=== PATIENT | male | born 1935 | race African-American/Black ===

== ENCOUNTER 2020-07-02 11:39 | Inpatient (IN) | payer OTHER ==
--- NOTE | 2020-07-02 11:46 | BHS.RME ---
Substance Use & Tx History - Substance Use History Heroin Substance amount: 4-5 bags Frequency of use: Daily Substance route: Injection (ex: intravenous or skin popping) Date of Last Use: 07/02/20 Nicotine Substance amount: 5 ciggs Frequency of use: Daily Substance route: Smoking Date of Last Use: 07/02/20 (started age 20) Marijuana/Hashish Substance amount: 3-4 blunts Frequency of use: Daily Substance route: Smoking Date of Last Use: 07/01/20 (started age 22) Cocaine- Powder Substance amount: 2 bags Frequency of use: Less than 3 times per week Substance route: Inhalation (ex: sniffing or snorting), Injection (ex: intravenous or skin popping) Date of Last Use: 06/30/20 (started age 62) Physical/Psych/Mental Status - Behavior General Behavior: Increased activity (restlessness, agitation) Eye Contact: Normal - Cooperativeness Cooperativeness: Cooperative - Thinking Thought Processes: Tight, Logical, Goal Directed - Physical Health Problems Is patient presently having any pain?: No Does patient presently have any injuries (include location): No Does patient currently have a fever: No Is patient : No COWS - Scale Resting Pulse: 0= [place] 80 or Below Sweatin= Chills/Flushing Restless Observation: 1= Difficult to Sit Still Pupil Size: 1= Pupils >than Normal Bone or Joint Aches: 1= Mild Discomfort Runny Nose/ Eye Tearin= Nasal Congestion GI Upset > 30mins: 1= Stomach Cramp Tremor Observation: 1= Tremor [place], Not Seen Yawning Observation: 1= 1-2x During Session Anxiety or Irritability: 1=Feels Anxious/Irritable Goose Flesh Skin: 0=Smooth Skin (used early this morning not yet in full withdrawal.) COWS Score: 9
--- NOTE | 2020-07-02 12:33 | HP ---
COWS - Scale Resting Pulse: 0= [place] 80 or Below Sweatin= Chills/Flushing Restless Observation: 1= Difficult to Sit Still Pupil Size: 1= Pupils >than Normal Bone or Joint Aches: 1= Mild Discomfort Runny Nose/ Eye Tearin= Nasal Congestion GI Upset > 30mins: 1= Stomach Cramp Tremor Observation: 1= Tremor [place], Not Seen Yawning Observation: 1= 1-2x During Session Anxiety or Irritability: 1=Feels Anxious/Irritable Goose Flesh Skin: 0=Smooth Skin (used early this morning not yet in full withdrawal.) COWS Score: 9 CIWA Score - Admission Criteria OASAS Guidelines: Admission for Medically Managed Detox: Requires at least one of the followin. CIWA greater than 12 2. Seizures within the past 24 hours 3. Delirium tremens within the past 24 hours 4. Hallucinations within the past 24 hours 5. Acute intervention needed for co occurring medical disorder 6. Acute intervention needed for co occurring psychiatric disorder 7. Severe withdrawal that cannot be handled at a lower level of care (continued vomiting, continued diarrhea, abnormal vital signs) requiring intravenous medication and/or fluids 8. Admitting History and Physical - Admission Chief Complaint: Mr. Wolfe is an 84 yo man who presents to [facility] [place] requesting detox admission for heroin use. History of Present Illness: Mr. Wolfe is an 84 yo man who presents to [facility] [place] requesting detox admission for heroin use. This is his first visit to [facility] [place]. PMH: CAD, NM, HTN, hx of positive PPD tx with INH and B6. Saw physician 2 weeks ago at [facility]: told he needs a pacemaker PSH/Psych/Legal: none SOC: lives in [place] in his own apt. alone Substance Use History Heroin Substance amount: 4-5 bags Frequency of use: Daily Substance route: Injection (ex: intravenous or skin popping) Date of Last Use: 07/02/20 First use ag 31 y Yes OD, x 2, last was 3 days ago Has Narcan at home Nicotine Substance amount: 5 ciggs Frequency of use: Daily Substance route: Smoking Date of Last Use: 07/02/20 (started age 20) Marijuana/Hashish Substance amount: 3-4 blunts Frequency of use: Daily Substance route: Smoking Date of Last Use: 07/01/20 (started age 22) Cocaine- Powder Substance amount: 2 bags Frequency of use: Less than 3 times per week Substance route: Inhalation (ex: sniffing or snorting), Injection (ex: intravenous or skin popping) Date of Last Use: 06/30/20 (started age 62) Methadone: 2 mos ago: [facility] [place], was on 30 mg. Admits to buying on the street History Source: Patient Limitations to Obtaining History: No Limitations - Past Medical History Cardiovascular: Yes: Other (multiple spells of loss of consciousness, told he needs a pacemaker, refused) Admission ROS BHS - HPI Exam Limitations: No Limitations - Ebola screening Have you traveled outside of the country in the last 21 days: No Have you been sick,other than usual withdrawal symptoms: No Do you have a fever: No - Review of Systems Constitutional: Unintentional Wgt. Loss (lost 20 lbs in the past several months) EENT: reports: Nose Congestion Respiratory: reports: No Symptoms reported Cardiac: reports: No Symptoms Reported, Other (hx of bradycardia and implanted device: unclear if it is a loop monitor) GI: reports: Nausea : reports: No Symptoms Reported Musculoskeletal: reports: Back Pain (nonradiating), Neck Pain (nonradiating), Other (fell 2 weeks ago, intoxicated, while trying to reach under his bed, struck left posterior shoulder, loss of consciousness for 20-30 mins) Integumentary: reports: Rash (bilateral right greater than left upper back, pruritic. Went to , given a cream, improving. Was weaping fluid in past) Neuro: reports: No Symptoms reported Endocrine: reports: No Symptoms Reported Hematology: reports: No Symptoms Reported Psychiatric: reports: Anxious Patient History - Smoking Cessation Smoking history: Current every day smoker Have you smoked in the past 12 months: Yes Aproximately how many cigarettes per day: 5 Hx Chewing Tobacco Use: No Initiated information on smoking cessation: Yes 'Breaking Loose' booklet given: 07/02/20 Admission Physical Exam S - Vital Signs Vital Signs: Vitals: 157/78 HR 67 RR 20 Temp 97.7 - Physical General Appearance: Yes: No Apparent Distress, Nourished, Thin, Anxious HEENTM: Yes: EOMI, Hearing grossly Normal, Normocephalic, Normal Voice Respiratory: Yes: Lungs Clear, No Respiratory Distress, No Accessory Muscle Use Neck: Yes: Within Normal Limits, Supple Breast: Yes: Breast Exam Deferred Cardiology: Yes: Regular Rhythm, Regular Rate, Other (implanted device palpable left upper chest, ~1.5 inch, slender, linear, pt states it was put in 10 years ago post an episode where he "fell out") Abdominal: Yes: Normal Bowel Sounds, Non Tender, Flat, Soft Genitourinary: Yes: Other (deferred) Back: Yes: Normal Inspection Musculoskeletal: Yes: Gait Steady, Other (fell 2 weeks ago, intoxicated, while trying to reach under his bed, struck left posterior shoulder, loss of consciousness for 20-30 mins) Extremities: Yes: Normal Inspection, Non-Tender Neurological: Yes: Alert, Normal Response Integumentary: Yes: Rash (upper back with multiple circular skin lesions, right greater than left, some with centers scratched off), Track [place] (multiple in legs and arms, mild erythema right medial leg, no swelling, no warmth) Cleared for Admission [facility] - Detox or Rehab [facility] Level of Care: Medically Managed Detox Regimen/Protocol: Methadone Breathalyzer - Breathalyzer Breathalyzer: 0 Urine Drug Screen - Test Device Lot number: [id number] - Control Is test valid?: Yes - Results Drug screen NEGATIVE: No Urine drug screen results: THC-Marijuana, RICARDA-Cocaine, FEN-Fentanyl, MOP- Opiates, MTD-Methadone Inpatient Rehab Admission - Rehab Decision to Admit Inpatient rehab admission?: No
[2020-07-02 12:54] VITALS: BMI 18.2
[2020-07-02] MEDS ORDERED: MAGNESIUM HYDROX 2400MG/30ML ORAL SUSPENSION 30 ML CUP PO PRN (13:11)
[2020-07-02] MEDS ORDERED: MAGNESIUM CITRATE 300 ML BOTTLE PO PRN (13:11)
[2020-07-02] MEDS ORDERED: BISMUTH SUBSALICYLATE 524 MG/30 ML UD PO PRN (13:11)
[2020-07-02] MEDS ORDERED: ACETAMINOPHEN 325 MG TABLET (FP) PO PRN ×2 (13:11)
[2020-07-02] MEDS ORDERED: MAG HYDROX/AL HYDROX/SIMETH 30 ML UNIT-DOSE CUP PO PRN (13:11)
[2020-07-02] MEDS ORDERED: ONDANSETRON *ODT* 4 MG TABLET SL PRN (13:11)
[2020-07-02] MEDS ORDERED: cloNIDine HCL 0.1 MG TABLET PO PRN (13:11)
[2020-07-02] MEDS ORDERED: MENTHOL/PHENOL 1 EACH UD MM PRN (13:11)
[2020-07-02] MEDS ORDERED: NICOTINE POLACRILEX 2 MG GUM BUC PRN (13:11)
[2020-07-02] MEDS ORDERED: METHOCARBAMOL 500 MG TABLET PO PRN (13:11)
[2020-07-02] MEDS ORDERED: IBUPROFEN 400 MG TABLET (FP) PO PRN (13:11)
--- OUTSIDE RECORDS SUMMARY | 2020-07-02 13:28 | XMS ---
:1935 Author Organization [facility] Support Name Relationship Address Phone RE Unavailable Unavailable Unavailable JACOB STALEY [facility] [place], [place] Re-disclosure Warning The records that you are about to access may contain information from federally- assisted alcohol or drug abuse programs. If such information is present, then the following federally mandated warning applies: This information has been disclosed to you from records protected by federal confidentiality rules (42 CFR part 2). The federal rules prohibit you from making any further disclosure of this information unless further disclosure is expressly permitted by the written consent of the person to whom it pertains or as otherwise permitted by 42 CFR part 2. A general authorization for the release of medical or other information is NOT sufficient for this purpose. The Federal rules restrict any use of the information to criminally investigate or prosecute any alcohol or drug abuse patient.The records that you are about to access may contain highly sensitive health information, the redisclosure of which is protected by Article 27-F of the [facility] Public Health law. If you continue you may haveaccess to information: Regarding HIV / AIDS; Provided by facilities licensed or operated by the [facility] Office of Mental Health; or Provided by the [facility] Office for People With Developmental Disabilities. If such information is present, then the following [facility] mandated warning applies: This information has been disclosed to you from confidential records which are protected by state law. State law prohibits you from making any further disclosure of this information without the specific written consent of the person to whom it pertains, or as otherwise permitted by law. Any unauthorized further disclosure in violation of state law may result in a fine or fdc sentence or both. A general authorization for the release of medical or other information is NOT sufficient authorization for further disclosure. Insurance Providers Payer name Policy type Policy ID Covered Covered democrat's Policy P yolanda / Coverage democrat ID relationship to [employer] Inf ormation type benitez MEDICAID [id number] BEACON [place] [id number] SP [id number] 5 PLUS MEDICARE
[2020-07-02] MEDS ORDERED: METHADONE HCL 10 MG TABLET (FOR DETOX USE ONLY) PO ONE (13:45)
[2020-07-02] MEDS ORDERED: LISINOPRIL 10 MG TABLET PO SCH (14:30)
[2020-07-02] MEDS: hydrOXYzine PAMOATE 25 MG CAPSULE (FP) PO SCH ×3 (14:48→23:44)
[2020-07-02] MEDS: METOPROLOL TARTRATE 25 MG TABLET (FP) PO SCH (14:48)
[2020-07-02 17:34] LABS: ALBUMIN 3.7 g/dl (3.4-5.0); BILIRUBIN,TOTAL 0.7 mg/dL (0.2-1); BLOOD UREA NITROGEN 35.2 mg/dL (7-18); CALCIUM 9.1 mg/dL (8.5-10.1); CREATININE 1.5 mg/dL (0.55-1.3); POTASSIUM 4.1 mmol/L (3.5-5.1); TOT PROT 8.6 g/dl (6.4-8.2)
[2020-07-02 17:44] LABS: HEMATOCRIT 30.3 % (35.4-49); HEMOGLOBIN 10.3 GM/dL (11.7-16.9); MCH 35.6 pg (25.7-33.7); MCHC 33.9 g/dl (32.0-35.9); MEAN CELL VOLUME 105.1 fl (80-96); MEAN PLT VOLUME 9.6 fl (7.5-11.1); PLATELET COUNT 164 K/MM3 (134-434); RBC 2.88 M/mm3 (4.00-5.60); RDW 12.9 % (11.9-15.9); WHITE BLOOD COUNT 4.7 K/mm3 (4.0-10.0)
[2020-07-02] MEDS: TRIAMCINOLONE ACET 0.1% OINT 15 GM TUBE TP SCH (23:20)
[2020-07-02] MEDS: FUROSEMIDE 20 MG TABLET (FP) PO SCH (23:22)
[2020-07-02] MEDS: THIAMINE HCL 100 MG TABLET (FP) PO SCH (23:22)
[2020-07-02] MEDS: ATORVASTATIN CA 80 MG TABLET (FP) PO SCH (23:22)
[2020-07-02] MEDS: SACUBITRIL/VALSARTAN 24 MG-26 MG TABLET PO SCH (23:22)
[2020-07-02] MEDS: MELATONIN 5 MG TABLETS PO SCH (23:43)
[2020-07-03] MEDS: hydrOXYzine PAMOATE 25 MG CAPSULE (FP) PO SCH ×5 (05:26→23:07)
[2020-07-03] MEDS ORDERED: METHADONE HCL 5 MG TABLET (FOR DETOX USE ONLY) ONE (09:02)
[2020-07-03] MEDS ORDERED: METHADONE HCL 10 MG TABLET (FOR DETOX USE ONLY) ONE (09:02)
--- NOTE | 2020-07-03 09:28 | PN ---
BHS COWS - Scale Resting Pulse: 0= [place] 80 or Below Sweatin= No chills or Flushing Restless Observation: 0= Sits Still Pupil Size: 0= Normal to Room Light Bone or Joint Aches: 1= Mild Discomfort Runny Nose/ Eye Tearin= Runny Nose/Eyes GI Upset > 30mins: 1= Stomach Cramp Tremor Observation of Outstretched Hands: 2= Slight Tremor Visible Yawning Observation: 1= 1-2x During Session Anxiety or Irritability: 2=Irritable/Anxious Goose Flesh Skin: 0=Smooth Skin COWS Score: 9 BHS Progress Note (SOAP) Subjective: alert,irritable,anxious,interrupted sleep,aching pain Objective: 07/03/20 14:47 Vital Signs Temperature 97.3 F L 07/03/20 13:03 Pulse Rate 50 L 07/03/20 13:03 Respiratory Rate 18 07/03/20 13:03 Blood Pressure 125/99 07/03/20 13:03 O2 Sat by Pulse Oximetry (%) 96 07/03/20 13:03 07/03/20 14:47 07/02/20 07/02/20 13:05 13:05 WBC 4.7 RBC 2.88 L Hgb 10.3 L Hct 30.3 L MCV 105.1 H MCHC 33.9 RDW 12.9 Plt Count 164 Sodium 139 Potassium 4.1 Chloride 103 Carbon Dioxide 28 Anion Gap 8 BUN 35.2 H Creatinine 1.5 H Assessment: 07/03/20 14:48 withdrawal symptom Plan: cntinue detox methadone regimen,fluid,repeat abc,cmp,inr in am
[2020-07-03] MEDS ORDERED: METHADONE (DETOX) 20 MG, METHADONE (DETOX) 5 MG PO ONE (10:00)
--- NOTE | 2020-07-03 10:07 | EKG ---
Test Reason : Blood Pressure : / mmHG Vent. Rate : 063 BPM Atrial Rate : 063 BPM P-R Int : 156 ms QRS Dur : 102 ms QT Int : 430 ms P-R-T Axes : 063 001 -47 degrees QTc Int : 440 ms NORMAL SINUS RHYTHM MODERATE VOLTAGE CRITERIA FOR LVH, MAY BE NORMAL VARIANT BORDERLINE ECG NO PREVIOUS ECGS AVAILABLE Confirmed by Linden Wright ([id number]) on 07/03/2020 10:06:40 AM Referred By: Confirmed By:Linden Wright
[2020-07-03] MEDS: FUROSEMIDE 20 MG TABLET (FP) PO SCH ×2 (10:18→23:07)
[2020-07-03] MEDS: PRENATAL VITAMINS W/ FOLIC ACID TABLET (FP) PO SCH (10:18)
[2020-07-03] MEDS: SACUBITRIL/VALSARTAN 24 MG-26 MG TABLET PO SCH ×2 (10:18→23:07)
[2020-07-03] MEDS: METOPROLOL TARTRATE 25 MG TABLET (FP) PO SCH (10:18)
[2020-07-03] MEDS: TRIAMCINOLONE ACET 0.1% OINT 15 GM TUBE TP SCH ×2 (10:18→23:07)
[2020-07-03] MEDS: NICOTINE 7 MG/24 HOURS TOPICAL PATCH TD SCH (10:19)
[2020-07-03] MEDS: ATORVASTATIN CA 80 MG TABLET (FP) PO SCH (23:06)
[2020-07-03] MEDS: THIAMINE HCL 100 MG TABLET (FP) PO SCH (23:07)
[2020-07-03] MEDS: MELATONIN 5 MG TABLETS PO SCH (23:07)
[2020-07-04] MEDS: hydrOXYzine PAMOATE 25 MG CAPSULE (FP) PO SCH ×5 (06:37→22:29)
[2020-07-04] MEDS ORDERED: METHADONE HCL 10 MG TABLET (FOR DETOX USE ONLY) PO ONE (10:00)
[2020-07-04] MEDS: TRIAMCINOLONE ACET 0.1% OINT 15 GM TUBE TP SCH ×2 (10:05→22:29)
[2020-07-04] MEDS: SACUBITRIL/VALSARTAN 24 MG-26 MG TABLET PO SCH ×2 (10:09→22:29)
[2020-07-04] MEDS: FUROSEMIDE 20 MG TABLET (FP) PO SCH ×2 (10:09→22:29)
[2020-07-04] MEDS: PRENATAL VITAMINS W/ FOLIC ACID TABLET (FP) PO SCH (10:10)
[2020-07-04] MEDS: METOPROLOL TARTRATE 25 MG TABLET (FP) PO SCH (10:10)
[2020-07-04] MEDS: NICOTINE 7 MG/24 HOURS TOPICAL PATCH TD SCH (10:10)
[2020-07-04 10:54] LABS: BASO % 0.5 % (0-2.0); EOS % 3.8 % (0-4.5); HEMATOCRIT 32.3 % (35.4-49); HEMOGLOBIN 10.8 GM/dL (11.7-16.9); LYMPH % 38.3 % (8-40); MCHC 33.4 g/dl (32.0-35.9); MEAN CELL VOLUME 104.8 fl (80-96); MEAN PLT VOLUME 9.5 fl (7.5-11.1); MONO % 10.7 % (3.8-10.2); NEUT % 46.7 % (42.8-82.8); PLATELET COUNT 153 K/MM3 (134-434); RBC 3.08 M/mm3 (4.00-5.60); RDW 12.8 % (11.9-15.9); WHITE BLOOD COUNT 3.7 K/mm3 (4.0-10.0)
[2020-07-04 10:58] LABS: INR 1.07 (0.83-1.09); PROTHROMBIN TIME (PATIENT) 12.6 SEC (9.7-13.0)
[2020-07-04 11:00] LABS: ALBUMIN 3.4 g/dl (3.4-5.0); BILIRUBIN,TOTAL 0.5 mg/dL (0.2-1); BLOOD UREA NITROGEN 29.6 mg/dL (7-18); CALCIUM 9.1 mg/dL (8.5-10.1); CREATININE 1.2 mg/dL (0.55-1.3); POTASSIUM 4.5 mmol/L (3.5-5.1); TOT PROT 8.2 g/dl (6.4-8.2)
--- NOTE | 2020-07-04 12:10 | PN ---
BHS COWS - Scale Resting Pulse: 0= [place] 80 or Below Sweatin= Chills/Flushing Restless Observation: 1= Difficult to Sit Still Pupil Size: 0= Normal to Room Light Bone or Joint Aches: 1= Mild Discomfort Runny Nose/ Eye Tearin= Nasal Congestion GI Upset > 30mins: 0= None Tremor Observation of Outstretched Hands: 1= Tremor [place], Not Seen Yawning Observation: 0= None Anxiety or Irritability: 0= None Goose Flesh Skin: 3=Piloerection COWS Score: 8 BHS Progress Note (SOAP) Subjective: body aches sweats shakes restless Objective: 07/04/20 12:09 Vital Signs Temperature 96.9 F L 07/04/20 09:00 Pulse Rate 73 07/04/20 09:00 Respiratory Rate 18 07/04/20 09:00 Blood Pressure 128/77 07/04/20 09:00 O2 Sat by Pulse Oximetry (%) 97 07/04/20 09:00 Laboratory Tests 07/02/20 07/02/20 07/02/20 13:05 13:05 13:05 WBC 4.7 RBC 2.88 L Hgb 10.3 L Hct 30.3 L MCV 105.1 H MCH 35.6 H MCHC 33.9 RDW 12.9 Plt Count 164 MPV 9.6 Absolute Neuts (auto) Neutrophils % Lymphocytes % Monocytes % Eosinophils % Basophils % Nucleated RBC % PT with INR INR Sodium 139 Potassium 4.1 Chloride 103 Carbon Dioxide 28 Anion Gap 8 BUN 35.2 H Creatinine 1.5 H Est GFR (CKD-EPI)AfAm 49.54 Est GFR (CKD-EPI)NonAf 42.74 Random Glucose 108 H Calcium 9.1 Total Bilirubin 0.7 AST 31 ALT 25 Alkaline Phosphatase 134 H Total Protein 8.6 H Albumin 3.7 Syphilis Serology Non-reactive COVID-19 ([facility]) HIV Ag/Ab Combo Qual 07/02/20 07/02/20 07/04/20 14:00 14:10 07:50 WBC 3.7 L RBC 3.08 L Hgb 10.8 L Hct 32.3 L MCV 104.8 H MCH 35.0 H MCHC 33.4 RDW 12.8 Plt Count 153 MPV 9.5 Absolute Neuts (auto) 1.7 Neutrophils % 46.7 Lymphocytes % 38.3 Monocytes % 10.7 H Eosinophils % 3.8 Basophils % 0.5 Nucleated RBC % 0 PT with INR INR Sodium Potassium Chloride Carbon Dioxide Anion Gap BUN Creatinine Est GFR (CKD-EPI)AfAm Est GFR (CKD-EPI)NonAf Random Glucose Calcium Total Bilirubin AST ALT Alkaline Phosphatase Total Protein Albumin Syphilis Serology COVID-19 ([facility]) Not detected HIV Ag/Ab Combo Qual Negative 07/04/20 07/04/20 07:50 08:30 WBC RBC Hgb Hct MCV MCH MCHC RDW Plt Count MPV Absolute Neuts (auto) Neutrophils % Lymphocytes % Monocytes % Eosinophils % Basophils % Nucleated RBC % PT with INR 12.60 INR 1.07 Sodium 139 Potassium 4.5 Chloride 103 Carbon Dioxide 30 Anion Gap 6 L BUN 29.6 H Creatinine 1.2 Est GFR (CKD-EPI)AfAm 64.88 Est GFR (CKD-EPI)NonAf 55.98 Random Glucose 78 Calcium 9.1 Total Bilirubin 0.5 AST 27 ALT 25 Alkaline Phosphatase 131 H Total Protein 8.2 Albumin 3.4 Syphilis Serology COVID-19 ([facility]) HIV Ag/Ab Combo Qual labs noted BUN improving aaox3 ambulating no acute distress Assessment: 07/04/20 12:10 withdrawals Plan: continue detox increase fluids
--- NOTE | 2020-07-04 16:17 | HP ---
COWS - Scale Resting Pulse: 0= [place] 80 or Below Sweatin= Chills/Flushing Restless Observation: 1= Difficult to Sit Still Pupil Size: 1= Pupils >than Normal Bone or Joint Aches: 1= Mild Discomfort Runny Nose/ Eye Tearin= Nasal Congestion GI Upset > 30mins: 1= Stomach Cramp Tremor Observation: 1= Tremor [place], Not Seen Yawning Observation: 1= 1-2x During Session Anxiety or Irritability: 1=Feels Anxious/Irritable Goose Flesh Skin: 0=Smooth Skin (used early this morning not yet in full withdrawal.) COWS Score: 9 CIWA Score - Admission Criteria OASAS Guidelines: Admission for Medically Managed Detox: Requires at least one of the followin. CIWA greater than 12 2. Seizures within the past 24 hours 3. Delirium tremens within the past 24 hours 4. Hallucinations within the past 24 hours 5. Acute intervention needed for co occurring medical disorder 6. Acute intervention needed for co occurring psychiatric disorder 7. Severe withdrawal that cannot be handled at a lower level of care (continued vomiting, continued diarrhea, abnormal vital signs) requiring intravenous medication and/or fluids 8. Admitting History and Physical - Past Medical History Cardiovascular: Yes: Other (multiple spells of loss of consciousness, told he needs a pacemaker, refused) - Smoking History Smoking history: Current every day smoker Have you smoked in the past 12 months: Yes Aproximately how many cigarettes per day: 5 Admission [facility] Allergies/Adverse Reactions: Allergies Allergy/AdvReac Type Severity Reaction Status Date / Time No Known Allergies Allergy Verified 07/02/20 13:32 - Ebola screening Have you traveled outside of the country in the last 21 days: No Have you been sick,other than usual withdrawal symptoms: No Do you have a fever: No Patient History - Patient Medical History Hx Asthma: No Hx Chronic Obstructive Pulmonary Disease (COPD): No Hx Cardiac Disorders: No Hx Hypertension: Yes (ON MEDS) Hx Seizures: No Hx Diabetes: No Hx Gastrointestinal Disorders: No Hx Genitourinary Disorders: No Hx Sexually Transmitted Disorders: No Hx Renal Disease (ESRD): No Hx Depression: No Hx Suicide Attempt: No Hx Schizophrenia: No - Patient Surgical History Past Surgical History: Yes Hx Neurologic Surgery: No Hx Cataract Extraction: No Hx Cardiac Surgery: No Hx Lung Surgery: No Hx Breast Surgery: Yes (ENL[facility] GLAND- 1960) Hx Breast Biopsy: No Hx Abdominal Surgery: No Hx Appendectomy: No Hx Cholecystectomy: No Hx Genitourinary Surgery: No Hx Section: No Hx Orthopedic Surgery: No Anesthesia Reaction: No - PPD History Previous Implant?: Yes (CXR) Documented Results: Positive w/o proof Implanted On Prior R Admission?: No - Smoking Cessation Smoking history: Current every day smoker Have you smoked in the past 12 months: Yes Aproximately how many cigarettes per day: 5 Hx Chewing Tobacco Use: No Initiated information on smoking cessation: Yes - Substances abused Heroin Substance route: Injection Frequency: Daily Amount used: 4-5bags Age of first use: 31 Date of last use: 07/02/20 Cocaine Substance route: Injection Frequency: 3-6 times per week Amount used: 2-3 bags Age of first use: 62 Date of last use: 06/30/20 Marijuana/Hashish Substance route: Smoking Frequency: Daily Amount used: 3-4 blunts Age of first use: 22 Date of last use: 07/01/20 Admission Physical Exam S - Vital Signs Vital Signs: Vital Signs - 24 hr 07/03/20 07/03/20 07/04/20 17:30 21:10 06:08 Temperature 97.9 F 96.8 F L 96.8 F L Pulse Rate 53 L 54 L 54 L Respiratory 18 18 18 Rate Blood Pressure 137/56 L 114/57 L 114/57 L O2 Sat by Pulse 96 96 97 Oximetry (%) 07/04/20 07/04/20 07/04/20 06:44 09:00 13:18 Temperature 98.1 F 96.9 F L 97.0 F L Pulse Rate 66 73 54 L Respiratory 20 18 18 Rate Blood Pressure 134/71 128/77 130/64 O2 Sat by Pulse 96 96 97 Oximetry (%) - Diagnostic (1) Opioid withdrawal Current Visit: Yes Status: Acute (2) Nicotine dependence Current Visit: Yes Status: Chronic Qualifiers: Nicotine product type: cigarettes Substance use status: uncomplicated Qualified Code(s): F17.210 - Nicotine dependence, cigarettes, uncomplicated (3) Cannabis abuse Current Visit: Yes Status: Chronic (4) Cocaine abuse Current Visit: Yes Status: Chronic (5) HTN (hypertension) Current Visit: Yes Status: Chronic Qualifiers: Hypertension type: essential hypertension Qualified Code(s): I10 - Essential (primary) hypertension (6) Positive PPD Current Visit: Yes Status: Chronic Breathalyzer - Breathalyzer Breathalyzer: 0 Urine Drug Screen - Test Device Lot number: [id number] Expiration date: 01/16/22 - Control Is test valid?: Yes - Results Drug screen NEGATIVE: No Urine drug screen results: THC-Marijuana, RICARDA-Cocaine, FEN-Fentanyl, MOP- Opiates, MTD-Methadone
[2020-07-04] MEDS: ATORVASTATIN CA 80 MG TABLET (FP) PO SCH (22:29)
[2020-07-04] MEDS: THIAMINE HCL 100 MG TABLET (FP) PO SCH (22:30)
[2020-07-04] MEDS: MELATONIN 5 MG TABLETS PO SCH (22:30)
[2020-07-05] MEDS: hydrOXYzine PAMOATE 25 MG CAPSULE (FP) PO SCH ×5 (05:51→22:25)
[2020-07-05] MEDS ORDERED: METHADONE HCL 10 MG TABLET (FOR DETOX USE ONLY) ONE (09:23)
[2020-07-05] MEDS ORDERED: METHADONE HCL 5 MG TABLET (FOR DETOX USE ONLY) ONE (09:23)
[2020-07-05] MEDS ORDERED: METHADONE (DETOX) 10 MG, METHADONE (DETOX) 5 MG PO ONE (10:00)
[2020-07-05] MEDS: TRIAMCINOLONE ACET 0.1% OINT 15 GM TUBE TP SCH ×2 (10:46→22:23)
[2020-07-05] MEDS: FUROSEMIDE 20 MG TABLET (FP) PO SCH ×2 (10:46→22:22)
[2020-07-05] MEDS: PRENATAL VITAMINS W/ FOLIC ACID TABLET (FP) PO SCH (10:46)
[2020-07-05] MEDS: NICOTINE 7 MG/24 HOURS TOPICAL PATCH TD SCH (10:46)
[2020-07-05] MEDS: SACUBITRIL/VALSARTAN 24 MG-26 MG TABLET PO SCH ×2 (10:46→22:22)
[2020-07-05] MEDS: METOPROLOL TARTRATE 25 MG TABLET (FP) PO SCH (10:46)
--- NOTE | 2020-07-05 12:12 | PN ---
BHS COWS - Scale Resting Pulse: 0= [place] 80 or Below Sweatin= Chills/Flushing Restless Observation: 1= Difficult to Sit Still Pupil Size: 0= Normal to Room Light Bone or Joint Aches: 1= Mild Discomfort Runny Nose/ Eye Tearin= None GI Upset > 30mins: 0= None Tremor Observation of Outstretched Hands: 0= None Yawning Observation: 1= 1-2x During Session Anxiety or Irritability: 1=Feels Anxious/Irritable Goose Flesh Skin: 0=Smooth Skin COWS Score: 5 BHS Progress Note (SOAP) Subjective: right foot instability with walking sweats restless Objective: 07/05/20 12:10 Vital Signs Temperature 97.6 F 07/05/20 08:45 Pulse Rate 58 L 07/05/20 08:45 Respiratory Rate 19 07/05/20 08:45 Blood Pressure 136/68 07/05/20 08:45 O2 Sat by Pulse Oximetry (%) 98 07/05/20 08:45 Laboratory Tests 07/02/20 07/02/20 07/02/20 13:05 13:05 13:05 WBC 4.7 RBC 2.88 L Hgb 10.3 L Hct 30.3 L MCV 105.1 H MCH 35.6 H MCHC 33.9 RDW 12.9 Plt Count 164 MPV 9.6 Absolute Neuts (auto) Neutrophils % Lymphocytes % Monocytes % Eosinophils % Basophils % Nucleated RBC % PT with INR INR Sodium 139 Potassium 4.1 Chloride 103 Carbon Dioxide 28 Anion Gap 8 BUN 35.2 H Creatinine 1.5 H Est GFR (CKD-EPI)AfAm 49.54 Est GFR (CKD-EPI)NonAf 42.74 Random Glucose 108 H Calcium 9.1 Total Bilirubin 0.7 AST 31 ALT 25 Alkaline Phosphatase 134 H Total Protein 8.6 H Albumin 3.7 Syphilis Serology Non-reactive COVID-19 ([facility]) HIV Ag/Ab Combo Qual 07/02/20 07/02/20 07/04/20 14:00 14:10 07:50 WBC 3.7 L RBC 3.08 L Hgb 10.8 L Hct 32.3 L MCV 104.8 H MCH 35.0 H MCHC 33.4 RDW 12.8 Plt Count 153 MPV 9.5 Absolute Neuts (auto) 1.7 Neutrophils % 46.7 Lymphocytes % 38.3 Monocytes % 10.7 H Eosinophils % 3.8 Basophils % 0.5 Nucleated RBC % 0 PT with INR INR Sodium Potassium Chloride Carbon Dioxide Anion Gap BUN Creatinine Est GFR (CKD-EPI)AfAm Est GFR (CKD-EPI)NonAf Random Glucose Calcium Total Bilirubin AST ALT Alkaline Phosphatase Total Protein Albumin Syphilis Serology COVID-19 ([facility]) Not detected HIV Ag/Ab Combo Qual Negative 07/04/20 07/04/20 07:50 08:30 WBC RBC Hgb Hct MCV MCH MCHC RDW Plt Count MPV Absolute Neuts (auto) Neutrophils % Lymphocytes % Monocytes % Eosinophils % Basophils % Nucleated RBC % PT with INR 12.60 INR 1.07 Sodium 139 Potassium 4.5 Chloride 103 Carbon Dioxide 30 Anion Gap 6 L BUN 29.6 H Creatinine 1.2 Est GFR (CKD-EPI)AfAm 64.88 Est GFR (CKD-EPI)NonAf 55.98 Random Glucose 78 Calcium 9.1 Total Bilirubin 0.5 AST 27 ALT 25 Alkaline Phosphatase 131 H Total Protein 8.2 Albumin 3.4 Syphilis Serology COVID-19 ([facility]) HIV Ag/Ab Combo Qual aaox3 ambulating no acute distress Assessment: 07/05/20 12:12 withdrawals Plan: continue detox qiana bandage ordered as per pt request
[2020-07-05] MEDS: THIAMINE HCL 100 MG TABLET (FP) PO SCH (22:22)
[2020-07-05] MEDS: ATORVASTATIN CA 80 MG TABLET (FP) PO SCH (22:22)
[2020-07-05] MEDS: MELATONIN 5 MG TABLETS PO SCH (22:24)
[2020-07-06] MEDS: hydrOXYzine PAMOATE 25 MG CAPSULE (FP) PO SCH ×4 (05:48→17:31)
[2020-07-06 09:12] VITALS: BP 112/67; PULSE 18; TEMP 97.1
[2020-07-06] MEDS ORDERED: METHADONE HCL 10 MG TABLET (FOR DETOX USE ONLY) PO ONE (10:00)
[2020-07-06] MEDS: METOPROLOL TARTRATE 25 MG TABLET (FP) PO SCH (10:20)
[2020-07-06] MEDS: FUROSEMIDE 20 MG TABLET (FP) PO SCH (10:20)
[2020-07-06] MEDS: SACUBITRIL/VALSARTAN 24 MG-26 MG TABLET PO SCH (10:21)
[2020-07-06] MEDS: TRIAMCINOLONE ACET 0.1% OINT 15 GM TUBE TP SCH (10:24)
[2020-07-06] MEDS: PRENATAL VITAMINS W/ FOLIC ACID TABLET (FP) PO SCH (10:59)
[2020-07-06] MEDS: NICOTINE 7 MG/24 HOURS TOPICAL PATCH TD SCH (10:59)
--- NOTE | 2020-07-06 11:05 | PN ---
[facility] COWS - Scale Resting Pulse: 1= W[place] 81-100 Sweatin= Chills/Flushing Restless Observation: 0= Sits Still Pupil Size: 0= Normal to Room Light Bone or Joint Aches: 0= None Runny Nose/ Eye Tearin= None GI Upset > 30mins: 0= None Tremor Observation of Outstretched Hands: 0= None Yawning Observation: 1= 1-2x During Session Anxiety or Irritability: 2=Irritable/Anxious Goose Flesh Skin: 0=Smooth Skin COWS Score: 5 BHS Progress Note (SOAP) Subjective: Fatigue, Anxious. Objective: Patient A & O X 3, observed ambulating on Unit unassisted. 07/06/20 11:02 Vital Signs Temperature 97.1 F L 07/06/20 08:24 Pulse Rate 18 L 07/06/20 08:24 Respiratory Rate 86 H 07/06/20 08:24 Blood Pressure 112/67 07/06/20 08:24 O2 Sat by Pulse Oximetry (%) 93 L 07/06/20 05:21 Laboratory Tests 07/02/20 07/02/20 07/02/20 13:05 13:05 13:05 WBC 4.7 RBC 2.88 L Hgb 10.3 L Hct 30.3 L MCV 105.1 H MCH 35.6 H MCHC 33.9 RDW 12.9 Plt Count 164 MPV 9.6 Absolute Neuts (auto) Neutrophils % Lymphocytes % Monocytes % Eosinophils % Basophils % Nucleated RBC % PT with INR INR Sodium 139 Potassium 4.1 Chloride 103 Carbon Dioxide 28 Anion Gap 8 BUN 35.2 H Creatinine 1.5 H Est GFR (CKD-EPI)AfAm 49.54 Est GFR (CKD-EPI)NonAf 42.74 Random Glucose 108 H Calcium 9.1 Total Bilirubin 0.7 AST 31 ALT 25 Alkaline Phosphatase 134 H Total Protein 8.6 H Albumin 3.7 Syphilis Serology Non-reactive COVID-19 ([facility]) HIV Ag/Ab Combo Qual 07/02/20 07/02/20 07/04/20 14:00 14:10 07:50 WBC 3.7 L RBC 3.08 L Hgb 10.8 L Hct 32.3 L MCV 104.8 H MCH 35.0 H MCHC 33.4 RDW 12.8 Plt Count 153 MPV 9.5 Absolute Neuts (auto) 1.7 Neutrophils % 46.7 Lymphocytes % 38.3 Monocytes % 10.7 H Eosinophils % 3.8 Basophils % 0.5 Nucleated RBC % 0 PT with INR INR Sodium Potassium Chloride Carbon Dioxide Anion Gap BUN Creatinine Est GFR (CKD-EPI)AfAm Est GFR (CKD-EPI)NonAf Random Glucose Calcium Total Bilirubin AST ALT Alkaline Phosphatase Total Protein Albumin Syphilis Serology COVID-19 ([facility]) Not detected HIV Ag/Ab Combo Qual Negative 07/04/20 07/04/20 07:50 08:30 WBC RBC Hgb Hct MCV MCH MCHC RDW Plt Count MPV Absolute Neuts (auto) Neutrophils % Lymphocytes % Monocytes % Eosinophils % Basophils % Nucleated RBC % PT with INR 12.60 INR 1.07 Sodium 139 Potassium 4.5 Chloride 103 Carbon Dioxide 30 Anion Gap 6 L BUN 29.6 H Creatinine 1.2 Est GFR (CKD-EPI)AfAm 64.88 Est GFR (CKD-EPI)NonAf 55.98 Random Glucose 78 Calcium 9.1 Total Bilirubin 0.5 AST 27 ALT 25 Alkaline Phosphatase 131 H Total Protein 8.2 Albumin 3.4 Syphilis Serology COVID-19 ([facility]) HIV Ag/Ab Combo Qual Lab Results noted. Assessment: 07/06/20 11:02 WITHDRAWAL SYMPTOMS. ANEMIA. AZOTEMIA. ELEVATED ALKALINE PHOSPHATASE LEVEL. 07/06/20 11:03 Plan: Continue Detox. Patient to be sent to [facility] ER via ambulance for recent onset Chest Pain. See following S Progress Note.
--- NOTE | 2020-07-06 11:22 | PN ---
[facility] Progress Note Note: Patient approached [facility]OT[facility]KER at [facility] and reported Chest Pain that started last night, then settled down for a once he went to sleep. However, he began to experience pain again this AM. Pain is localized around lower left side of chest, near upper border of Left ribcage. Patient reports that pain is severe, 10/10 on pain scale, stabbing in quality. He denies radiation of pain to neck, back, or to left arm. ECG ordered: Results of ECG: Marked Sinus Bradycardia; T Wave Abnormality (Consider Inferolateral Ischemia). HR: 44 bpm Patient has implanted device on left side chest, but he is uncertain of specific type of device. Patient denies known history of Stomach Disorder. He denies N/V. VS: BP: 146/74; P: 48 bpm; O2: 100%; RR: 20. Patient A & O X 3, observed ambulating on Unit unassisted. However, Patient appears guarded due to pain. Report given to Dr. Houston at [facility]. Patient taken via ambulance to [facility] for further evaluation. Azeb Barker NP
--- NOTE | 2020-07-06 16:14 | EKG ---
Test Reason : Blood Pressure : / mmHG Vent. Rate : 044 BPM Atrial Rate : 044 BPM P-R Int : 158 ms QRS Dur : 090 ms QT Int : 474 ms P-R-T Axes : 062 003 -71 degrees QTc Int : 405 ms MARKED SINUS BRADYCARDIA T WAVE ABNORMALITY, CONSIDER INFEROLATERAL ISCHEMIA ABNORMAL ECG WHEN COMPARED WITH ECG OF 02-JUL-2020 13:02, NO SIGNIFICANT CHANGE WAS FOUND Confirmed by MD Eliazar, Grayson ([id number]) on 07/06/2020 4:14:04 PM Referred By: Confirmed By:Grayson Perea MD
[2020-07-07] MEDS ORDERED: METHADONE HCL 5 MG TABLET (FOR DETOX USE ONLY) PO ONE (06:00)
== END 2020-07-06 23:00 | disposition short-term general hospital (02) | DRG 897 ==
LOC: YASAS 11:39 → Y6N 13:57
PROVIDERS: ADMIT Allergy & Immunology; ATTEND Allergy & Immunology
PROC: HZ2ZZZZ Detoxification Services for Substance Abuse Treatment (ICD-10-PCS; principal; 2020-07-02)
DX: F11.23 Opioid dependence with withdrawal (principal); F14.10 Cocaine abuse, uncomplicated; F12.10 Cannabis abuse, uncomplicated; F17.210 Nicotine dependence, cigarettes, uncomplicated; D64.9 Anemia, unspecified; I10 Essential (primary) hypertension; R07.9 Chest pain, unspecified; R94.31 Abnormal electrocardiogram [ECG] [EKG]; R00.1 Bradycardia, unspecified; R74.8 Abnormal levels of other serum enzymes; R76.11 Nonspecific reaction to tuberculin skin test without active tuberculosis; R79.89 Other specified abnormal findings of blood chemistry
CPT/HCPCS: 36415; 71046-TC-FY; 80053; 85025; 85027; 85610; 86780; 87389; 93005; 93010; U0003

== ENCOUNTER 2020-07-06 11:55 | Observation (INO) | payer OTHER ==
--- OUTSIDE RECORDS SUMMARY | 2020-07-06 12:16 | XMS ---
:1935 Author Organization [facility] Support Name Relationship Address Phone RE, RETIRED Unavailable Unavailable Unavailable RE Unavailable Unavailable Unavailable JACOB [facility] [place], [place] Re-disclosure Warning The records that [...] is protected by Article 27-F of the [facility] Public Health law. If you continue you may haveaccess to information: Regarding HIV / AIDS; Provided by facilities licensed or operated by the [facility] Office of Mental Health; or Provided by the [facility] Office for People With Developmental Disabilities. If such information is present, then the following [facility] mandated warning applies: This information has [...] law may result in a fine or detention sentence or both. A general authorization for the release of medical or other information is NOT sufficient authorization for further disclosure. Insurance Providers Payer name Policy type Policy ID Covered Covered green party's Policy P yolanda / Coverage green party ID relationship to Benitez Inf ormation type benitez [place] PLUS [id number] SP [id number] HEALTH PLAN MEDICAID [id number] SP [id number] [place] [id number] SP [id number] PLUS MEDICARE Results ID Date Data Source [id number] 07/02/2020 02:00:00 PM EDT [facility] Name Value Range Interpretation Description Data Sup porting Code Source(s) Document(s ) SARS [facility] coronavirus 2 RNA This lab was ordered by [facility] ct Bill Inter and reported by [facility]. ID Date Data Source [id number] 02/18/2020 10:21:00 AM EDT [facility] Name Value Range Interpretation Code Description Data Chloe rce(s) Supporting Document(s ) SARS-COV-2 [facility] PCR This lab was ordered by CINDY PERRIN 1 and re ported by [facility]. Procedure
--- NOTE | 2020-07-06 12:18 | PDOC ---
History of Present Illness - General Chief Complaint: Chest Pain Stated Complaint: CHEST PAIN Time Seen by Provider: 07/06/20 12:15 Past History - Medical History Allergies/Adverse Reactions: Allergies Allergy/AdvReac Type Severity Reaction Status Date / Time No Known Allergies Allergy Verified 07/06/20 12:03 Home Medications: Ambulatory Orders Atorvastatin Calcium 80 mg PO HS 07/02/20 Furosemide [Lasix -] 20 mg PO BID 07/02/20 Lisinopril [Prinivil] 10 mg PO DAILY 07/02/20 Metoprolol Tartrate 25 mg PO DAILY 07/02/20 Sacubitril/Valsartan [Entresto 24 mg-26 mg Tablet] 1 each PO BID 07/02/20 Asthma: No Cardiac Disorders: No COPD: No Diabetes: No GI Disorders: No Disorders: No HTN: Yes (ON MEDS) Kidney Stones: No Seizures: No Other medical history: ADDICTION HEROIN AND COCAINE - Surgical History Abdominal Surgery: No Appendectomy: No Cardiac Surgery: No Cholecystectomy: No Lung Surgery: No Neurologic Surgery: No Orthopedic Surgery: No - Reproductive History Testicular Surgery: No - Immunization History Immunization Up to Date: Yes - Psycho-Social/Smoking History Smoking History: Current every day smoker Have you smoked in the past 12 months: Yes Number of Cigarettes Smoked Daily: 5 Information on smoking cessation initiated: No 'Breaking Loose' booklet given: 07/02/20 - Substance Abuse Hx (Audit-C & DAST Scrn) How often the patient has a drink containing alcohol: 2-3 times / week Number of drinks the patient has on a typical day: 1 or 2 How often the patient has six or more drinks on one occasion: Never Score: In Men: 4 or > Positive; In Women: 3 or > Positive: 3 Screen Result (Pos requires Nsg. Audit-10AR): Negative In the last yr the pt used illegal drug/Rx for NonMed reason: Yes Score: Yes response is considered Positive: 1 Screen Result (Positive result requires Nsg. DAST-10): Positive *Physical Exam - Vital Signs Last Vital Signs Temp Pulse Resp BP Pulse Ox 98.0 F 50 L 18 128/68 100 07/06/20 12:03 07/06/20 12:03 07/06/20 12:03 07/06/20 12:03 07/06/20 12:03 ED Treatment Course - LABORATORY CBC & Chemistry Diagram: 07/06/20 12:57 07/06/20 12:47 Medical Decision Making - Medical Decision Making 07/06/20 12:53 HPI: 84yo M hx heroin and cocaine abuse (in detox at [facility] since 07/02/20), HTN, CAD, and bradyarrhythmia s/p ILR placement (pt believes it to be a [employer] defibrillator placed 6 years ago by unknown doctor, believes was supposed to get pacemaker as well but refused it at that time) sent from [facility] detox for intermittent stabbing type very brief/instantaneous L-sided nonradiating (located at lower L chest) chest pains nonexertional since last night, approx 20 in total, no associated sx. Asymptomatic at this time. Been to a tele grout sewer line repairer at [facility] recently just once but doesn't remember her name. Last took home meds this AM. COVID on 07/02/20 at [facility] negative. Meds: Lipitor 80 PO HS Lopressor 25 PO daily Lasix 20 PO BID Entresto 1 tab PO daily ROS: Constitutional: Negative for chills, fever, fatigue, diaphoresis. HENT: Negative for sore throat, rhinorrhea, congestion. Eyes: Negative for visual disturbance. Respiratory: Negative for shortness of breath, cough, and wheezing. Cardiovascular: Positive for chest pain. Negative for palpitations, and leg swelling. Gastrointestinal: Negative for abdominal pain, blood in stool, constipation, diarrhea, nausea, and vomiting. Genitourinary: Negative for dysuria, flank pain, and hematuria. Musculoskeletal: Negative for myalgias, back pain, and neck pain. Skin: Negative for rash. Neurological: Negative for light-headedness, dizziness, vertigo, syncope, weakness, numbness and headaches. Psychiatric/Behavioral: Negative for behavioral problems and confusion. PE: Gen: Alert, NAD, comfortable-appearing, thin HEENT: PERRL, EOMI, MMM, NCAT. No conjunctival pallor. Sclera are non-icteric. CV: Regular rate and rhythm. +systolic murmur. No rubs, or gallops. PULM: No resp distress. CTAB, no wheezes, rales, or rhonchi. ABD: soft, NT/ND, no rebound tenderness or guarding, no CVA tenderness. BACK: No TTP of c/t/l-spine. No step-offs or deformities. MSK: No bony deformities. 2+ pulses in all extremities. NEURO: AAOx3. PERRL. No gross CN deficits. Strength and sensation grossly intact throughout. EXTREMITIES: No cyanosis. No clubbing. No edema. No calf tenderness. PSYCH: Normal mood and thought pattern. SKIN: Warm and dry. Normal capillary refill. Multiple healing excoriations to upper back. No jaundice. MDM: 84yo M hx heroin and cocaine abuse (in detox at [facility] since 07/02/20), HTN, CAD, and bradyarrhythmia s/p ILR placement sent from [facility] detox for intermittent chest pains since last night. Bradycardic, otherwise hemodynamically stable, afebrile, neurologically intact. Ddx: ACS/CT, arrhythmia, PNA, infection, metabolic derangement, anemia -EKG -CXR -CBC,CMP,Coags,Cardiac profile -IVF -Dispo: pending workup and reassessment, admit 07/06/20 13:10 Called [employer] - do not make implantable loop recorders. Called [facility] - placed model [id number] on 04/23/16 Dr Phong Hooker, clinical cardiac chemical research engineer at [facility] 07/06/20 13:32 Only last 3 years (3 year battery life). Sometimes elect to not remove them - discussion between tele grout sewer line repairer and pt. Spoke with Engine Room Helper Dr Phong Hooker - pt never followed up, no longer his pt, recommends to be admitted and evaluated by a tele grout sewer line repairer here as needed. 07/06/20 13:44 EKG reviewed: sinus bradycardia with occasional PVCs, 49bpm, QTc 428ms, TWIs in II/III/aVF/V4/V5/V6, no ST elevations or depressions, compared to 07/02/20 new TWIs in V4/V5/V6 CXR reviewed: ILR in place, questionable early PNA by radiologist but pt is afebrile, no SOB, no cough, and pain on opposite side - will not treat for PNA at this time Labs reviewed. NSTEMI trop 0.07 NSTEMI -ASA -Heparin protocol -Cardiology consult: called, pending callback -Admit tele 07/06/20 14:44 Signed out to admitting team -4 calls placed to Cardiology - still pending callback Discharge - Discharge Information Problems reviewed: Yes Clinical Impression/Diagnosis: Chest pain, Status post placement of implantable loop recorder Condition: Stable - Admission Yes - Follow up/Referral - Patient Discharge Instructions - Post Discharge Activity
[2020-07-06 13:24] LABS: BASO % 0.6 % (0-2.0); EOS % 3.7 % (0-4.5); HEMOGLOBIN 10.4 GM/dL (11.7-16.9); LYMPH % 41.8 % (8-40); MCH 35.8 pg (25.7-33.7); MCHC 34.5 g/dl (32.0-35.9); MEAN CELL VOLUME 103.5 fl (80-96); MEAN PLT VOLUME 9.1 fl (7.5-11.1); MONO % 9.8 % (3.8-10.2); NEUT % 44.1 % (42.8-82.8); PLATELET COUNT 152 K/MM3 (134-434); WHITE BLOOD COUNT 3.6 K/mm3 (4.0-10.0)
[2020-07-06 13:35] LABS: ALBUMIN 3.3 g/dl (3.4-5.0); BILIRUBIN,TOTAL 0.2 mg/dL (0.2-1); BLOOD UREA NITROGEN 26.5 mg/dL (7-18); CALCIUM 8.9 mg/dL (8.5-10.1); POTASSIUM 4.2 mmol/L (3.5-5.1); TOT PROT 7.8 g/dl (6.4-8.2)
[2020-07-06 13:36] LABS: INR 1.13 (0.83-1.09); PROTHROMBIN TIME (PATIENT) 13.3 SEC (9.7-13.0)
[2020-07-06] MEDS ORDERED: SODIUM CHLORIDE 0.9% 500 ML INFUS.BAG IV ONE (13:36)
[2020-07-06] MEDS ORDERED: ASPIRIN 81 MG CHEWABLE TABLETS PO ONE (13:37)
[2020-07-06] MEDS ORDERED: ASPIRIN COATED 81 MG TABLET.EC ONE (14:00)
--- OUTSIDE RECORDS SUMMARY | 2020-07-06 14:36 | XMS ---
:1935 Author Organization [facility] Support Name Relationship Address Phone RE, RETIRED Unavailable Unavailable Unavailable RE Unavailable Unavailable Unavailable JACOB STALEY [facility] [place], [place] Re-disclosure Warning The records that [...] by Article 27-F of the [facility] Public Health law. If you continue you may haveaccess to information: Regarding HIV / AIDS; Provided by facilities licensed or operated by the [facility] Office of Mental Health; or Provided by the [facility] Office for People With Developmental Disabilities. If such information is present, then the following [facility] mandated warning applies: This information has been [...] law may result in a fine or mcc sentence or both. A general authorization for the release of medical or other information is NOT sufficient authorization for further disclosure. Insurance Providers Payer name Policy type Policy ID Covered Covered constitution party's Policy P yolanda / Coverage constitution party ID relationship to Benitez Inf ormation type benitez [place] PLUS [id number] SP [id number] HEALTH PLAN MEDICAID [id number] SP [id number] [place] [id number] SP [id number] PLUS MEDICARE Results ID Date Data Source [id number] 07/02/2020 02:00:00 PM EDT [facility] Name Value Range Interpretation Description Data Sup porting Code Source(s) Document(s ) SARS [facility] coronavirus 2 RNA This lab was ordered by [facility] ct Bill Inter and reported by [facility]. ID Date Data Source [id number] 02/18/2020 10:21:00 AM EDT [facility] Name Value Range Interpretation Code Description Data Chloe rce(s) Supporting Document(s ) SARS-COV-2 [facility] PCR This lab was ordered by CINDY PERRIN [address] ported by [facility]. Procedure
[2020-07-06] MEDS ORDERED: HEPARIN NA (PORCINE) 5,000 UNITS/ML 1ML VIAL IVPUSH PRN ×2 (14:38)
[2020-07-06] MEDS ORDERED: HEPARIN NA (PORCINE) 5,000 UNITS/ML 1ML VIAL IVPUSH ONE (14:38)
--- NOTE | 2020-07-06 14:40 | PDOC ---
Documentation entered by Samuel Webb SCRIBE, acting as scribe for Yoli Houston MD. Yoli Houston MD: This documentation has been prepared by the Jon [place], SCRIBE, under my direction and personally reviewed by me in its entirety. I confirm that the documentation accurately reflects all work, treatment, procedures, and medical decision making performed by me. Attending Attestation - Resident Resident Name: Adele Durham - ED Attending Attestation I have performed the following: I have examined & evaluated the patient, The case was reviewed & discussed with the resident, I agree w/resident's findings & plan, Exceptions are as noted - HPI HPI: 07/06/20 13:29 The patient is an 84 year old male with a significant PMH of CAD, MA, hx of positive PPD, HTN, and currently in detox from heroin and cocaine ([facility] since 07/02/20) who presents to the emergency department for L sided chest pain. Patient reports intermittent nonexertional stabbing L sided chest pain since last night, approx 20 ep with no associated symptoms. Patient is currently asymptomatic and denies any other symptoms. Allergies: NKDA Past surgical history: medtronic ILR Social Hx: everyday smoker (5 cig/day). EtOH 2-3 times a week PCP: none - Physicial Exam PE: 07/06/20 14:36 General: well appearing Chest: CTAB, good air entry, no wheezes rales or rhonchi CVS: + s1 s2, slightly bradycardic (low 50's) - Medical Decision Making 07/06/20 14:37 84 yo M with chest pain with some atypical features, now resolved, however EKG with new TWIs v4-v6 concerning for ACS. Lower suspicion for PNA or PE as patient without any infectious complaints and no SOB. Plan: -labs -cxr -asa -cardiology consult -admit tele This clinical encounter is taking place during a federal and state health care emergency attributable to the novel Guevara Virus pandemic. The Procurement Analyst of the Department of Health and Human Services has declared, pursuant to the Public Health Service Act 319F-3 (42 U.S.C. 247d-6d), that a covered persons activities related to medical countermeasures against COVID-19 will be immune from liability under Federal and State law. Heart Score/ECG Review - ECG Impressions Comment:: 07/06/20 14:39 sinus, rate 48, TWI II III aVF (similar to prior) and TWI v4-v6 new compared to prior Discharge - Discharge Information Problems reviewed: Yes Clinical Impression/Diagnosis: Chest pain, Status post placement of implantable loop recorder Condition: Stable - Follow up/Referral - Patient Discharge Instructions - Post Discharge Activity
[2020-07-06] MEDS ORDERED: HEPARIN INFUSION - 25,000 UNITS/500 ML INFUS.BAG IVPB ONE (14:42)
[2020-07-06] MEDS ORDERED: HEPARIN - 25,000 UNIT in SODIUM CHLORIDE 495 ML IV SCH (14:45)
[2020-07-06] MEDS ORDERED: CLOPIDOGREL BISULFATE 300 MG TABLET PO ONE (14:53)
[2020-07-06] MEDS ORDERED: ENOXAPARIN NA (PORCINE) 60 MG/0.6 ML DISP.SYRIN SQ SCH (15:00)
[2020-07-06 15:04] LABS: ACTIVATED PTT 35.6 SECONDS (25.2-36.5)
[2020-07-06] MEDS ORDERED: CLOPIDOGREL BISULFATE 300 MG TABLET ONE (15:07)
[2020-07-06] MEDS ORDERED: ENOXAPARIN NA (PORCINE) 100 MG/1 ML DISP.SYRIN SQ ONE (15:08)
--- NOTE | 2020-07-06 16:08 | EKG ---
Test Reason : Blood Pressure : / mmHG Vent. Rate : 049 BPM Atrial Rate : 049 BPM P-R Int : 166 ms QRS Dur : 090 ms QT Int : 474 ms P-R-T Axes : 057 002 -70 degrees QTc Int : 428 ms SINUS BRADYCARDIA WITH OCCASIONAL PREMATURE VENTRICULAR COMPLEXES LEFT VENTRICULAR HYPERTROPHY WITH REPOLARIZATION ABNORMALITY CANNOT RULE OUT SEPTAL INFARCT , AGE UNDETERMINED ABNORMAL ECG WHEN COMPARED WITH ECG OF 06-JUL-2020 09:47, PREMATURE VENTRICULAR COMPLEXES ARE NOW PRESENT T WAVE INVERSION LESS EVIDENT IN LATERAL LEADS Confirmed by MD Eliazar, Grayson ([id number]) on 07/06/2020 4:08:09 PM Referred By: Confirmed By:Grayson Perea MD
--- NOTE | 2020-07-06 16:20 | HP ---
CHIEF COMPLAINT: chest pain PCP: none HISTORY OF PRESENT ILLNESS: Patient is an 84 year old male with past medical history of bradyarrhythmia s/p implantable loop recorder placement (2016), heroin and cocaine abuse, HTN, ?CAD/TN, sent from [facility] after he reported multiple episodes of left sided chest pain. Patient reported he started experiencing left sided, stabbing chest pain while he was lying down in bed last night. This lasted for about 5 minutes. Later on, he stood up and walked around and experienced the same chest pain. He was given Xanax then and was able to sleep through the night. Today, patient woke up and again experienced the chest pain so he was brought to the ED. At the ED, patient reported multiple intermittent episodes of left sided stabbing 8/10 chest pain, with no aggravating or alleviating factors. It was noted that during his episodes of chest pain, paired PVCs noted on telemetry and HR drops to 40s. Chest pain was reproducible. Patient reported he had ILR placed a few years ago due to bradycardia. ED staff was able to get a hold of Dr. Hooker who reported that patient has not followed up since ILR was placed. Pacemaker was recommended but patient never followed up. He then reports that he follows up with a horse groomer at [facility], who prescribes his medication. He reported that he was on eliquis for the past 2 years since he had the ILR placed, but 2 months ago, when he followed up with the horse groomer at [facility], he said the Eliquis was discontinued and switched to Entresto. Patient denies any history of other arrhythmia aside from bradycardia. He denies any fevers, chills, headache, dizziness, palpitations, shortness of breath, abdominal pain, diarrhea, urinary symptoms. ER course was notable for: (1)Trop 0.07 (2)EKG - TWI II/III/AVF/V4-6 (3) Recent Travel:denies PAST MEDICAL HISTORY: bradyarrhythmia s/p implantable loop recorder placement (2016) heroin and cocaine abuse HTN PAST SURGICAL HISTORY: R arm mass excision (1960s, reported benign) ILR placement Social History: Smokin cigarette Alcohol:drinks 2-3 x per week Drugs: 4-5 bags of heroin injected, inh/inj cocaine, marijuana Lives alone. From [place] Family History Father and mother - no significant medical history Allergies No Known Allergies Allergy (Verified 07/06/20 12:03) HOME MEDICATIONS: Home Medications Medication Instructions Recorded Atorvastatin Calcium 80 mg PO HS 07/02/20 Furosemide [Lasix -] 20 mg PO BID 07/02/20 Lisinopril [Prinivil] 10 mg PO DAILY 07/02/20 Metoprolol Tartrate 25 mg PO DAILY 07/02/20 Sacubitril/Valsartan [Entresto 24 1 each PO BID 07/02/20 mg-26 mg Tablet] REVIEW OF SYSTEMS CONSTITUTIONAL: Absent: fever, chills, diaphoresis, generalized weakness, malaise, loss of appetite, weight change HEENT: Absent: rhinorrhea, nasal congestion, throat pain, throat swelling, difficulty swallowing, mouth swelling, ear pain, eye pain, visual changes CARDIOVASCULAR: chest pain Absent:syncope, palpitations, irregular heart rate, lightheadedness, peripheral edema RESPIRATORY: Absent: cough, shortness of breath, dyspnea with exertion, orthopnea, wheezing, stridor, hemoptysis GASTROINTESTINAL: Absent: abdominal pain, abdominal distension, nausea, vomiting, diarrhea, constipation, melena, hematochezia GENITOURINARY: Absent: dysuria, frequency, urgency, hesitancy, hematuria, flank pain, genital pain MUSCULOSKELETAL: Absent: myalgia, arthralgia, joint swelling, back pain, neck pain SKIN: Absent: rash, itching, pallor HEMATOLOGIC/IMMUNOLOGIC: Absent: easy bleeding, easy bruising, lymphadenopathy, frequent infections ENDOCRINE: Absent: unexplained weight gain, unexplained weight loss, heat intolerance, cold intolerance NEUROLOGIC: Absent: headache, focal weakness or paresthesias, dizziness, unsteady gait, seizure, mental status changes, bladder or bowel incontinence PSYCHIATRIC: Absent: anxiety, depression, suicidal or homicidal ideation, hallucinations. PHYSICAL EXAMINATION Vital Signs - 24 hr 07/06/20 12:03 Temperature 98.0 F Pulse Rate 50 L Respiratory 18 Rate Blood Pressure 128/68 O2 Sat by Pulse 100 Oximetry (%) GENERAL: Awake, alert, and fully oriented, in no acute distress. HEAD: Normal with no signs of trauma. EYES:PERRLA, EOMI, sclera anicteric, conjunctiva clear. EARS, NOSE, THROAT: Moist mucous membranes. NECK: Normal range of motion, supple LUNGS: Breath sounds equal, clear to auscultation bilaterally. HEART: Regular rate and rhythm, normal S1 and S2, +holosystolic murmur, reproducible left sided chest pain ABDOMEN: Soft, nontender, not distended, normoactive bowel sounds MUSCULOSKELETAL: Normal range of motion at all joints. LOWER EXTREMITIES: 2+ pulses, warm, well-perfused. No calf tenderness. No peripheral edema. NEUROLOGICAL: Cranial nerves II-XII grossly intact. Normal speech. PSYCHIATRIC: Cooperative. Good eye contact. Appropriate mood and affect. SKIN: Warm, dry, normal turgor Laboratory Results - last 24 hr 07/06/20 07/06/20 07/06/20 12:47 12:57 12:57 WBC 3.6 L RBC 2.90 L Hgb 10.4 L Hct 30.0 L MCV 103.5 H MCH 35.8 H MCHC 34.5 RDW 13.0 Plt Count 152 MPV 9.1 Absolute Neuts (auto) 1.6 Neutrophils % 44.1 Lymphocytes % 41.8 H Monocytes % 9.8 Eosinophils % 3.7 Basophils % 0.6 Nucleated RBC % 0 PT with INR 13.30 H INR 1.13 H PTT (Actin FS) 35.6 Sodium 138 Potassium 4.2 Chloride 102 Carbon Dioxide 33 H Anion Gap 4 L BUN 26.5 H Creatinine 1.0 Est GFR (CKD-EPI)AfAm 80.88 Est GFR (CKD-EPI)NonAf 69.78 Random Glucose 112 H Calcium 8.9 Total Bilirubin 0.2 AST 24 ALT 23 Alkaline Phosphatase 127 H Creatine Kinase 127 Troponin I 0.07 H Total Protein 7.8 Albumin 3.3 L Lipase 258 ASSESSMENT/PLAN: Patient is an 84 year old male with past medical history of bradyarrhythmia s/p implantable loop recorder placement (2015), heroin and cocaine abuse, HTN, ?CAD/TN, sent from [facility] after he reported multiple episodes of left sided chest pain. #Atypical chest pain -Trop 0.07, will trend troponin -EKG showed TWI on II/III/AVF/V4-6, which was also seen (improved) from EKG on 07/02 -ASA and plavix given at the ED, Lovenox 60mg once -will hold off on therapeutic AC pending cardio eval -Echo -continue home med Entresto -will hold lasix and lopressor. -continue Lipitor 80mg Hs -tele monitoring -cardiology consulted. Recs appreciated. #Heroin/cocaine abuse -was on methadone taper at [facility] -to complete last dose of 5 mg tomorrow am -fall risk precaution -neurochecks #Macrocytic anemia -MCV 103, H/H 10.4/30 -B12, folate ordered -monitor CBC #HTN -On Entresto and Lasix -will hold off on the lopressor 2/2 bradycardia -BP stable #FEN -Not on any standing fluids -Electrolytes wnl, routine bmp monitoring -Sodium restricted diet #Prophylaxis -Lovenox 40mg sq daily #Disposition -full code -tele obs Family Medical History Family History: As Documented Visit type - Medication Review Med list reviewed for High Risk Meds patients 65 and older: Yes - Emergency Visit Emergency Visit: Yes ED Registration Date: 07/06/20 Care time: The patient presented to the Emergency Department on the above date and was hospitalized for further evaluation of their emergent condition. - New Patient This patient is new to me today: Yes Date on this admission: 07/06/20 - Critical Care Critical Care patient: No ATTENDING PHYSICIAN STATEMENT I saw and evaluated the patient. I reviewed the resident's note and discussed the case with the resident. I agree with the resident's findings and plan as documented. SUBJECTIVE: OBJECTIVE: ASSESSMENT AND PLAN:
--- NOTE | 2020-07-06 17:29 | CON.CARD ---
Consult Consult Specialty:: Cardiology - History of Present Illness History of Present Illness: Patient is an 84 year old male with past medical history of bradyarrhythmia s/p implantable loop recorder placement (2016), heroin and cocaine abuse, HTN, ?CAD/VT, sent from [facility] after he reported multiple episodes of left sided chest pain. - History Source History Provided By: Patient, Medical Record - Past Medical History Cardio/Vascular: Yes: Other (multiple spells of loss of consciousness, told he needs a pacemaker, refused) - Smoking History Smoking history: Current every day smoker Have you smoked in the past 12 months: Yes Aproximately how many cigarettes per day: 5 Home Medications - Allergies Allergies/Adverse Reactions: Allergies Allergy/AdvReac Type Severity Reaction Status Date / Time No Known Allergies Allergy Verified 07/06/20 12:03 - Home Medications Home Medications: Ambulatory Orders Atorvastatin Calcium 80 mg PO HS 07/02/20 Furosemide [Lasix -] 20 mg PO BID 07/02/20 Lisinopril [Prinivil] 10 mg PO DAILY 07/02/20 Metoprolol Tartrate 25 mg PO DAILY 07/02/20 Sacubitril/Valsartan [Entresto 24 mg-26 mg Tablet] 1 each PO BID 07/02/20 Review of Systems - Review of Systems Constitutional: reports: No Symptoms Eyes: reports: No Symptoms HENT: reports: No Symptoms Neck: reports: No Symptoms Cardiovascular: reports: Chest Pain Respiratory: reports: No Symptoms Gastrointestinal: reports: No Symptoms Genitourinary: reports: No Symptoms Breasts: reports: No Symptoms Reported Musculoskeletal: reports: No Symptoms Integumentary: reports: No Symptoms Neurological: reports: No Symptoms Endocrine: reports: No Symptoms Hematology/Lymphatic: reports: No Symptoms Psychiatric: reports: No Symptoms Vital Signs: Vital Signs Temperature 98.0 F 07/06/20 12:03 Pulse Rate 44 L 07/06/20 15:30 Respiratory Rate 18 07/06/20 15:30 Blood Pressure 142/77 07/06/20 15:30 O2 Sat by Pulse Oximetry (%) 100 07/06/20 15:30 Constitutional: Yes: Well Nourished, No Distress, Calm Eyes: Yes: WNL, Conjunctiva Clear, EOM Intact HENT: Yes: WNL, Atraumatic, Normocephalic Neck: Yes: WNL, Supple, Trachea Midline Respiratory: Yes: WNL, Regular, CTA Bilaterally Gastrointestinal: Yes: WNL, Normal Bowel Sounds Renal/: Yes: WNL Cardiovascular: Yes: WNL, Regular Rate and Rhythm Musculoskeletal: Yes: WNL Extremities: Yes: WNL Integumentary: Yes: WNL Neurological: Yes: WNL, Alert, Oriented ...Motor Strength: WNL Psychiatric: Yes: WNL, Alert, Oriented - Other Data Labs, Other Data: CBC, BMP 07/06/20 12:57 07/06/20 12:47 INR, PTT INR 1.13 (0.83-1.09) H 07/06/20 12:57 Troponin, BNP 07/06/20 07/06/20 12:47 15:39 Troponin I 0.07 H 0.08 H Troponin, BNP 07/06/20 07/06/20 12:47 15:39 Troponin I 0.07 H 0.08 H Imaging - Results Chest X-ray: Image Reviewed (?RUL infiltrate) EKG: Image Reviewed (s rae lvh vpcs rep abn invereted t waves) Assessment/Plan Patient is an 84 year old male with past medical history of bradyarrhythmia s/p implantable loop recorder placement (2016), heroin and cocaine abuse, HTN, ?C AD/VT, sent from [facility] after he reported multiple episodes of left sided chest pain. Found to have low levels TNIs CP free now; ASA Plavix 300 loading Lovenox 1 mg/kg Q12 h cont BB serial ekgs and tnis ECHO
--- NOTE | 2020-07-06 17:35 | PN ---
Teaching Attending Note Name of Resident: Radha Javed ATTENDING PHYSICIAN STATEMENT I saw and evaluated the patient. I reviewed the resident's note and discussed the case with the resident. I agree with the resident's findings and plan as documented. SUBJECTIVE: pt seen and examined at bedside, complaining form recurrent chest pain OBJECTIVE: Last Vital Signs Temp Pulse Resp BP Pulse Ox 98.0 F 44 L 18 142/77 100 07/06/20 12:03 07/06/20 15:30 07/06/20 15:30 07/06/20 15:30 07/06/20 15:30 GENERAL: Awake, alert, and fully oriented, in no acute distress. HEAD: Normal with no signs of trauma. EYES: Pupils equal, round and reactive to light, sclera anicteric, conjunctiva clear. LUNGS: Breath sounds equal, clear to auscultation bilaterally. No wheezes, and no crackles. No accessory muscle use. HEART: Regular rate and rhythm, normal S1 and S2, systolic 2/6 murmur at LSB, reporoducible chest pain on pressure at apex ABDOMEN: Soft, nontender, not distended MUSCULOSKELETAL: Normal range of motion at all joints. No bony deformities or tenderness. No CVA tenderness. UPPER EXTREMITIES: 2+ pulses, warm, well-perfused. No cyanosis. No clubbing. No peripheral edema. LOWER EXTREMITIES: 2+ pulses, warm, well-perfused. No calf tenderness. No peripheral edema. NEUROLOGICAL: Cranial nerves II-XII intact. Normal speech. CBCD WBC 3.6 K/mm3 (4.0-10.0) L 07/06/20 12:57 RBC 2.90 M/mm3 (4.00-5.60) L 07/06/20 12:57 Hgb 10.4 GM/dL (11.7-16.9) L 07/06/20 12:57 Hct 30.0 % (35.4-49) L 07/06/20 12:57 MCV 103.5 fl (80-96) H 07/06/20 12:57 MCHC 34.5 g/dl (32.0-35.9) 07/06/20 12:57 RDW 13.0 % (11.9-15.9) 07/06/20 12:57 Plt Count 152 K/MM3 (134-434) 07/06/20 12:57 MPV 9.1 fl (7.5-11.1) 07/06/20 12:57 CMP Sodium 138 mmol/L (136-145) 07/06/20 12:47 Potassium 4.2 mmol/L (3.5-5.1) 07/06/20 12:47 Chloride 102 mmol/L (98-107) 07/06/20 12:47 Carbon Dioxide 33 mmol/L (21-32) H 07/06/20 12:47 Anion Gap 4 MMOL/L (8-16) L 07/06/20 12:47 BUN 26.5 mg/dL (7-18) H 07/06/20 12:47 Creatinine 1.0 mg/dL (0.55-1.3) 07/06/20 12:47 Calcium 8.9 mg/dL (8.5-10.1) 07/06/20 12:47 Total Bilirubin 0.2 mg/dL (0.2-1) 07/06/20 12:47 AST 24 U/L (15-37) 07/06/20 12:47 ALT 23 U/L (13-61) 07/06/20 12:47 Alkaline Phosphatase 127 U/L (45-117) H 07/06/20 12:47 Total Protein 7.8 g/dl (6.4-8.2) 07/06/20 12:47 Albumin 3.3 g/dl (3.4-5.0) L 07/06/20 12:47 Active Medications Atorvastatin Calcium (Lipitor -) 80 mg PO HS [facility] Enoxaparin Sodium (Lovenox -) 40 mg SQ DAILY [facility] Methadone HCl (Dolophine -) 5 mg PO ONCE ONE Stop: 07/07/20 10:01 Nicotine (Nicoderm Patch -) 14 mg TD DAILY [facility] Sacubitril/Valsartan (Entresto 24 Mg-26 Mg Tablet) 1 tab PO BID [facility] ASSESSMENT AND PLAN: 84 year old man with Mhx of bradyarrhythmia s/p implantable loop recorder placement (2016?), Polysubstance abuse (heroin and cocaine, last use on 07/01/20 ), HTN, questionable h/o CAD/NV, sent from [facility] after he reported multiple episodes of left sided chest pain # Atypical Chest pain to rule out ACS -pt describes his pain as: started while reading at night, sharp/stabbing, 5- 7/10, recurrent located on lt side without radiation, pain is reproduced by touch -no associated palpitations, dizziness, n&v, no similar episodes in past -has h/o bradyarrhythmias yann ILR placement, no clear h/o CAD or angio provided -troponin 0.07--> 0.08 -EKG showed lateral T-wave inversion (new) that improved on subsequent EKG -continue to trend troponin and EKG -ASA and plavix , Lovenox 60mg once given at the ED -will hold off on therapeutic AC pending cardio evaluation -Echo ordered -continue home med Entresto -hold lopressor due to bradyarrhythmias (HR 40-60, asymptomatic) -continue Lipitor 80mg Hs -tele monitoring -cardiology consulted pending Recs #Heroin/cocaine abuse (on methadone taper at [facility], last dose of 5 mg tomorrow am) Macrocytic anemia HTN DVT prophylaxis with Lovenox
[2020-07-06] MEDS: ATORVASTATIN CA 80 MG TABLET (FP) PO SCH (21:55)
[2020-07-06] MEDS: SACUBITRIL/VALSARTAN 24 MG-26 MG TABLET PO SCH (21:55)
[2020-07-06] MEDS: ENOXAPARIN NA (PORCINE) 60 MG/0.6 ML DISP.SYRIN SQ SCH (21:55)
[2020-07-07 02:39] VITALS: BMI 17.6
[2020-07-07 07:14] LABS: BASO % 0.7 % (0-2.0); EOS % 4.4 % (0-4.5); HEMATOCRIT 31.6 % (35.4-49); HEMOGLOBIN 10.7 GM/dL (11.7-16.9); LYMPH % 44.8 % (8-40); MCHC 33.8 g/dl (32.0-35.9); MEAN CELL VOLUME 103.7 fl (80-96); MEAN PLT VOLUME 9.2 fl (7.5-11.1); MONO % 10.3 % (3.8-10.2); NEUT % 39.8 % (42.8-82.8); PLATELET COUNT 144 K/MM3 (134-434); RBC 3.04 M/mm3 (4.00-5.60); RDW 12.9 % (11.9-15.9); WHITE BLOOD COUNT 3.2 K/mm3 (4.0-10.0)
[2020-07-07 07:28] LABS: BILIRUBIN,TOTAL 0.3 mg/dL (0.2-1); PHOSPHOROUS 3.6 mg/dL (2.5-4.9); POTASSIUM 4.3 mmol/L (3.5-5.1)
[2020-07-07 07:33] LABS: ALBUMIN 2.9 g/dl (3.4-5.0); BLOOD UREA NITROGEN 24.1 mg/dL (7-18); CALCIUM 8.6 mg/dL (8.5-10.1); MAGNESIUM 1.7 mg/dL (1.8-2.4); TOT PROT 7.2 g/dl (6.4-8.2)
[2020-07-07] MEDS ORDERED: MAGNESIUM SULF 50% (8.12 MEQ/2 ML-1 GM VIAL) IVPB ONE (08:30)
[2020-07-07] MEDS ORDERED: PT OWN MED DRAWER 7, Y5N ONE ×3 (09:26→18:30)
[2020-07-07] MEDS: ENOXAPARIN NA (PORCINE) 60 MG/0.6 ML DISP.SYRIN SQ SCH (09:38)
[2020-07-07] MEDS: SACUBITRIL/VALSARTAN 24 MG-26 MG TABLET PO SCH ×2 (09:38→21:11)
--- NOTE | 2020-07-07 09:41 | PN ---
Progress Note, Physician History of Present Illness: Patient is an 84 year old male with past medical history of bradyarrhythmia s/p implantable loop recorder placement (2016), heroin and cocaine abuse, HTN, ?CAD/UT, sent from [facility] after he reported multiple episodes of left sided chest pain. - Current Medication List Current Medications: Active Medications Atorvastatin Calcium (Lipitor -) 80 mg PO HS [facility] Last Admin: 07/06/20 21:55 Dose: 80 mg Documented by: Enoxaparin Sodium (Lovenox -) 60 mg SQ BID [facility] Last Admin: 07/07/20 09:38 Dose: 60 mg Documented by: Methadone HCl (Dolophine -) 5 mg PO ONCE ONE Stop: 07/07/20 10:01 Last Admin: 07/07/20 09:38 Dose: 5 mg Documented by: Nicotine (Nicoderm Patch -) 14 mg TD DAILY [facility] Sacubitril/Valsartan (Entresto 24 Mg-26 Mg Tablet) 1 tab PO BID [facility] Last Admin: 07/07/20 09:38 Dose: 1 tab Documented by: - Objective Vital Signs: Vital Signs Temperature 98.1 F 07/07/20 07:00 Pulse Rate 49 L 07/07/20 07:00 Respiratory Rate 18 07/07/20 07:00 Blood Pressure 140/70 07/07/20 07:00 O2 Sat by Pulse Oximetry (%) 100 07/07/20 07:00 Eyes: Yes: WNL, Conjunctiva Clear, EOM Intact HENT: Yes: WNL, Atraumatic, Normocephalic Neck: Yes: WNL, Supple, Trachea Midline Cardiovascular: Yes: WNL, Regular Rate and Rhythm Respiratory: Yes: WNL, Regular, CTA Bilaterally Gastrointestinal: Yes: WNL, Normal Bowel Sounds Genitourinary: Yes: WNL Musculoskeletal: Yes: WNL Extremities: Yes: WNL Edema: No Integumentary: Yes: WNL Neurological: Yes: WNL, Alert, Oriented ...Motor Strength: WNL Psychiatric: Yes: WNL Labs: CBC, BMP 07/07/20 06:13 07/07/20 06:13 INR, PTT INR 1.13 (0.83-1.09) H 07/06/20 12:57 Assessment/Plan Patient is an 84 year old male with past medical history of bradyarrhythmia s/p implantable loop recorder placement (2015), heroin and cocaine abuse, HTN, ?CAD/UT, sent from [facility] after he reported multiple episodes of left sided chest pain. Found to have low levels TNIs CP free now; ASA Plavix cont BB serial ekgs and tnis ECHO
[2020-07-07] MEDS ORDERED: METHADONE HCL 5 MG TABLET PO ONE (10:00)
[2020-07-07] MEDS ORDERED: ENOXAPARIN NA (PORCINE) 40 MG/0.4 ML DISP.SYRIN SQ SCH (10:00)
[2020-07-07] MEDS: ASPIRIN COATED 81 MG TABLET.EC PO SCH (11:42)
[2020-07-07] MEDS: CLOPIDOGREL BISULFATE 75 MG TABLET (FP) PO SCH (11:42)
--- NOTE | 2020-07-07 14:06 | PN ---
Progress Note (short form) - Note Progress Note: S: 84yo M with h/o bradyarrythmia's, polysubstance abuse, CAD, and HTN who comes from [facility] due to chest pain. Pt originally from [place] where he has received implantable loop recorder years prior and had echocardiogram performed prior. Patient notes that he was seeking detox for heroine and cocaine and when there was no bed availability at [place] he was brought to [facility]. Patient reports his last detox dose was today and he was going to be discharged from [facility]. Chest pain developed without any provocating activity. No associated claudication, radiation, SOB noted during this time. Currently patient denies any chest pain. He was placed on therapeutic AC overnight and his troponins have plateau'd. No complaints today. Vital Signs Temperature 98.1 F 07/07/20 14:00 Pulse Rate 56 L 07/07/20 14:00 Respiratory Rate 14 07/07/20 14:00 Blood Pressure 137/79 07/07/20 14:00 O2 Sat by Pulse Oximetry (%) 97 07/07/20 09:00 PE: Gen: NAD, awake, alert, laying in bed HEENT NC/AT, EOMI, JACOB, MMM Neck: No JVD, no carotid bruits LUNG: CTA b/l without wheezes or rales. Implantable loop recorder without any skin changes noted CARD: RRR no murmurs appreciated Abd: soft, NT/Nd, normoactive BS, no guarding EXT: no edema CBC, BMP 07/07/20 06:13 07/07/20 06:13 Laboratory Tests 07/06/20 07/06/20 07/07/20 12:47 21:20 06:13 Troponin I 0.07 H 0.08 H 0.08 H Active Medications Aspirin (Ecotrin -) 81 mg PO DAILY [facility] Last Admin: 07/07/20 11:42 Dose: 81 mg Documented by: Atorvastatin Calcium (Lipitor -) 80 mg PO HS [facility] Last Admin: 07/06/20 21:55 Dose: 80 mg Documented by: Clopidogrel Bisulfate (Plavix -) 75 mg PO DAILY [facility] Last Admin: 07/07/20 11:42 Dose: 75 mg Documented by: Nicotine (Nicoderm Patch -) 14 mg TD DAILY [facility] Sacubitril/Valsartan (Entresto 24 Mg-26 Mg Tablet) 1 tab PO BID [facility] Last Admin: 07/07/20 09:38 Dose: 1 tab Documented by: Assessment and Plan: Chest pain with myocardial ischemia History of Bradyarrhythmias Polysubstance abuse Leukopenia Macrocytic Anemia History of HTN --Troponins plateau'd --Cardiology recs appreciated --Discontinue therapeutic lovenox and continue ASA and plavix daily --Continue cardiac monitoring --Will need echocardiogram for wall motion abnormalities --continue Entresto 24-26 --Patient would benefit from beta elisabeth, however he has been sinus bradycardia around 50bpm without symptoms and so it is being held for now --Continue Statin --Patient's last dose this AM of methadone 5mg to finish taper --Continue rehab services outpatient if patient amenable Dispo: Continue telemetry monitoring; echo in AM DO Moraima Melvin IM
--- NOTE | 2020-07-07 15:03 | EKG ---
Test Reason : Blood Pressure : / mmHG Vent. Rate : 052 BPM Atrial Rate : 052 BPM P-R Int : 156 ms QRS Dur : 090 ms QT Int : 490 ms P-R-T Axes : 065 -09 -84 degrees QTc Int : 455 ms SINUS BRADYCARDIA WITH PREMATURE ATRIAL COMPLEXES LEFT VENTRICULAR HYPERTROPHY WITH REPOLARIZATION ABNORMALITY ABNORMAL ECG WHEN COMPARED WITH ECG OF 06-JUL-2020 14:22, PREMATURE ATRIAL COMPLEXES ARE NOW PRESENT Confirmed by MD Eliazar, Grayson ([id number]) on 07/07/2020 3:03:02 PM Referred By: Dixie JONES Confirmed By:Grayson Perea MD
--- NOTE | 2020-07-07 15:10 | EKG ---
Test Reason : Blood Pressure : / mmHG Vent. Rate : 046 BPM Atrial Rate : 046 BPM P-R Int : 178 ms QRS Dur : 096 ms QT Int : 476 ms P-R-T Axes : 060 -07 -46 degrees QTc Int : 416 ms SINUS BRADYCARDIA WITH SINUS ARRHYTHMIA MINIMAL VOLTAGE CRITERIA FOR LVH, MAY BE NORMAL VARIANT SEPTAL INFARCT (CITED ON OR BEFORE 06-JUL-2020) ABNORMAL ECG WHEN COMPARED WITH ECG OF 06-JUL-2020 12:16, PREMATURE VENTRICULAR COMPLEXES ARE NO LONGER PRESENT SERIAL CHANGES OF SEPTAL INFARCT PRESENT Confirmed by MD Eliazar, Grayson ([id number]) on 07/07/2020 3:09:55 PM Referred By: Confirmed By:Grayson Perea MD
[2020-07-07] MEDS: NICOTINE 14 MG/24 HOURS TOPICAL PATCH TD SCH (16:20)
[2020-07-07] MEDS: ATORVASTATIN CA 80 MG TABLET (FP) PO SCH (21:11)
[2020-07-08 06:54] LABS: HEMATOCRIT 33.8 % (35.4-49); HEMOGLOBIN 11.4 GM/dL (11.7-16.9); MCH 34.8 pg (25.7-33.7); MCHC 33.7 g/dl (32.0-35.9); MEAN CELL VOLUME 103.3 fl (80-96); MEAN PLT VOLUME 8.6 fl (7.5-11.1); PLATELET COUNT 157 K/MM3 (134-434); RBC 3.28 M/mm3 (4.00-5.60); RDW 12.7 % (11.9-15.9)
[2020-07-08 08:44] LABS: BLOOD UREA NITROGEN 19.7 mg/dL (7-18); CALCIUM 9.2 mg/dL (8.5-10.1); MAGNESIUM 2.2 mg/dL (1.8-2.4); POTASSIUM 4.1 mmol/L (3.5-5.1)
--- NOTE | 2020-07-08 08:52 | PN ---
Progress Note, Physician History of Present Illness: Patient is an 84 year old male with past medical history of bradyarrhythmia s/p implantable loop recorder placement (2016), heroin and cocaine abuse, HTN, ?CAD/OR, sent from [facility] after he reported multiple episodes of left sided chest pain. - Current Medication List Current Medications: Active Medications Aspirin (Ecotrin -) 81 mg PO DAILY [facility] Last Admin: 07/07/20 11:42 Dose: 81 mg Documented by: Atorvastatin Calcium (Lipitor -) 80 mg PO HS [facility] Last Admin: 07/07/20 21:11 Dose: 80 mg Documented by: Clopidogrel Bisulfate (Plavix -) 75 mg PO DAILY [facility] Last Admin: 07/07/20 11:42 Dose: 75 mg Documented by: Nicotine (Nicoderm Patch -) 14 mg TD DAILY [facility] Last Admin: 07/07/20 16:20 Dose: 14 mg Documented by: Sacubitril/Valsartan (Entresto 24 Mg-26 Mg Tablet) 1 tab PO BID [facility] Last Admin: 07/07/20 21:11 Dose: 1 tab Documented by: - Objective Vital Signs: Vital Signs Temperature 97.9 F 07/08/20 06:00 Pulse Rate 57 L 07/08/20 06:00 Respiratory Rate 20 07/08/20 06:00 Blood Pressure 153/68 07/08/20 06:00 O2 Sat by Pulse Oximetry (%) 98 07/08/20 06:00 Eyes: Yes: WNL, Conjunctiva Clear, EOM Intact HENT: Yes: WNL, Atraumatic, Normocephalic Neck: Yes: WNL, Supple, Trachea Midline Cardiovascular: Yes: WNL, Regular Rate and Rhythm Respiratory: Yes: WNL, Regular, CTA Bilaterally Gastrointestinal: Yes: WNL, Normal Bowel Sounds Genitourinary: Yes: WNL Musculoskeletal: Yes: WNL Extremities: Yes: WNL Edema: No Integumentary: Yes: WNL Neurological: Yes: WNL, Alert, Oriented ...Motor Strength: WNL Psychiatric: Yes: WNL Labs: CBC, BMP 07/08/20 06:25 07/08/20 06:25 INR, PTT INR 1.13 (0.83-1.09) H 07/06/20 12:57 Assessment/Plan Patient is an 84 year old male with past medical history of bradyarrhythmia s/p implantable loop recorder placement (2015), heroin and cocaine abuse, HTN, ?CAD/OR, sent from [facility] after he reported multiple episodes of left sided chest pain. Found to have low levels TNIs CP free now; ASA Plavix cont BB serial ekgs and tnis ECHO Pending Depending on the results of ECHO may need stress test or c. Cath
[2020-07-08 08:58] LABS: CREATININE 0.9 mg/dL (0.55-1.3)
[2020-07-08] MEDS ORDERED: PT OWN MED DRAWER 7, Y5N ONE (08:58)
[2020-07-08] MEDS: ASPIRIN COATED 81 MG TABLET.EC PO SCH (08:59)
[2020-07-08] MEDS: SACUBITRIL/VALSARTAN 24 MG-26 MG TABLET PO SCH ×2 (08:59→22:40)
[2020-07-08] MEDS: CLOPIDOGREL BISULFATE 75 MG TABLET (FP) PO SCH (08:59)
[2020-07-08] MEDS: NICOTINE 14 MG/24 HOURS TOPICAL PATCH TD SCH (09:00)
--- NOTE | 2020-07-08 12:43 | PN ---
Teaching Attending Note Name of Resident: Nato Goodrich ATTENDING PHYSICIAN STATEMENT I saw and evaluated the patient. I reviewed the resident's note and discussed the case with the resident. I agree with the resident's findings and plan as documented. SUBJECTIVE: Seen and examined at bedside. Patient reports chest pain has resolved. Troponi ns plateaued at 0.083. Pending echocardiogram. OBJECTIVE Last Vital Signs Temp Pulse Resp BP Pulse Ox 98.6 F 61 18 130/76 99 07/08/20 10:07/08/20 10:07/08/20 10:00 07/08/20 10:07/08/20 10:00 PE: Per resident note Labs/Imaging: reviewed ASSESSMENT/PLAN 84-year-old male with a past medical history of bradycardia arrhythmia status post implantable loop recorder placement in 2016, heroin and cocaine abuse, hypertension, CAD/[place] sent from [facility] for repeated episodes of left-sided chest pain, found to have NSTEMI #Chest pain with NSTEMI Continue ASA, Plavix, statin Pending echocardiogram We will obtain records from [place] and [facility] Telemetry Patient would benefit from beta-elisabeth, however he has sinus bradycardia so being held #Opiate and cocaine detox: Completed
--- NOTE | 2020-07-08 15:21 | ECHO ---
Name: RIKKI STERN Exam:Adult Echocardiogram Study Date: 07/08/2020 11:55 AM Age: 84 yrs Reason For Study: Chest pain Height: 68 in Weight: 120 lb BSA: 1.6 m2 MMode/2D Measurements & Calculations IVSd: 1.1 cm Ao root diam: 2.9 cm LVIDd: 4.6 cm LA dimension: 3.5 cm LVIDs: 3.4 cm LVPWd: 1.0 cm EDV(Teich): 99.4 ml LVOT diam: 2.0 cm ESV(Teich): 48.5 ml LAV (MOD-bp): 74.6 ml Doppler Measurements & Calculations MV E max kirk: 53.3 cm/sec Ao V2 max: 137.2 cm/sec MV A max kirk: 82.0 cm/sec Ao max P.5 mmHg MV E/A: 0.65 MV dec time: 0.15 sec DAVIS(V,D): 1.8 cm2 LV V1 max P.5 mmHg MR max kirk: 481.6 cm/sec LV V1 max: 79.1 cm/sec MR max P.3 mmHg TR max kirk: 229.7 cm/sec PA V2 max: 111.3 cm/sec TR max P.4 mmHg PA max P.0 mmHg Med Peak E' Kirk: 4.0 cm/sec Med E/e': 13.2 Lat Peak E' Kirk: 6.4 cm/sec Lat E/e': 8.3 Procedure A complete two-dimensional transthoracic echocardiogram was performed (2D, M-mode, Doppler and color flow Doppler). Left Ventricle The left ventricle is normal in size. Left ventricular systolic function is normal. Ejection Fraction = 55- 60%. Grade I diastolic dysfunction, (abnormal relaxation pattern). Ratio E/E'= 13. No regional wall m otion abnormalities noted. Right Ventricle The right ventricle is normal size. The right ventricular systolic function is normal. Atria The left atrial size is normal. Right atrial size is normal. Mitral Valve The mitral valve is normal in structure and function. There is mild mitral regurgitation. Tricuspid Valve The tricuspid valve is normal in structure and function. There is mild tricuspid regurgitation. PASP is at least 31 mmHg if RA pressure is assumed 3 mmHg. Aortic Valve The aortic valve is normal in structure and function. No aortic regurgitation is present. Pulmonic Valve The pulmonic valve is not well visualized. Great Vessels The aortic root is normal size. Pericardium/Pleura There is no pericardial effusion. Interpretation Summary The left ventricle is normal in size. Left ventricular systolic function is normal. No regional wall motion abnormalities noted. Ejection Fraction = 55-60%. The right ventricular systolic function is normal. There is mild mitral regurgitation. There is mild tricuspid regurgitation. Grade I diastolic dysfunction, (abnormal relaxation pattern). Ratio E/E'= 13 PASP is at least 31 mmHg if RA pressure is assumed 3 mmHg There is no pericardial effusion. Derrick Pierre MD 07/08/2020 03:20 PM
--- NOTE | 2020-07-08 17:40 | PN ---
Physical Exam: SUBJECTIVE: Patient seen and examined at bedside. Denies chest pain or shortness of breath. OBJECTIVE: Vital Signs Period Temp Pulse Resp BP Sys/Zambrano Pulse Ox Last 24 Hr 97.7 F-98.8 F 55-71 16-20 117-153/68-91 98-100 GENERAL: NAD HEAD: Normal with no signs of trauma. EYES: EOMI Sclera Clear NECK: Trachea midline, full range of motion, supple. LUNGS: CTAB HEART: RRR No MRG S1S2 ABDOMEN: Soft, NDNT EXTREMITIES: 2+ pulses, warm, well-perfused, no edema. NEUROLOGICAL: Cranial nerves II through XII grossly intact. Normal speech. PSYCH: Normal mood, normal affect. SKIN: Warm, dry, normal turgor, no rashes or lesions noted Laboratory Results - last 24 hr 07/08/20 07/08/20 06:25 06:25 WBC 4.0 RBC 3.28 L Hgb 11.4 L Hct 33.8 L MCV 103.3 H MCH 34.8 H MCHC 33.7 RDW 12.7 Plt Count 157 MPV 8.6 Sodium 139 Potassium 4.1 Chloride 104 Carbon Dioxide 30 Anion Gap 4 L BUN 19.7 H Creatinine 0.9 Est GFR (CKD-EPI)AfAm 91.86 Est GFR (CKD-EPI)NonAf 79.26 Random Glucose 82 Calcium 9.2 Magnesium 2.2 Active Medications Generic Name Dose Route Start Last Admin Trade Name Freq PRN Reason Stop Dose Admin Aspirin 81 mg 07/07/20 10:00 07/08/20 08:59 Ecotrin - PO 81 mg DAILY MEAGAN Administration Atorvastatin Calcium 80 mg 07/06/20 22:00 07/07/20 21:11 Lipitor - PO 80 mg HS MEAGAN Administration Clopidogrel Bisulfate 75 mg 07/07/20 10:00 07/08/20 08:59 Plavix - PO 75 mg DAILY MEAGAN Administration Nicotine 14 mg 07/07/20 10:00 07/08/20 09:00 Nicoderm Patch - TD 14 mg DAILY MEAGAN Administration Sacubitril/Valsartan 1 tab 07/06/20 22:00 07/08/20 08:59 Entresto 24 Mg-26 Mg Tablet PO 1 tab BID MEAGAN Administration ASSESSMENT/PLAN: 84-year-old male with a 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 EF 55-60%. We will obtain records from [place] and [facility] Telemetry Patient would benefit from beta-elisabeth, however he has sinus bradycardia so being held -Cardio on board recs appreciated -Consider EP consult as patient with loop recorder that has not been interrogated since placement per patient. -Possible Stress test in am. #Opiate and cocaine detox: -Completed Detox at [facility]. #FEN No Fluids Monitor Electrolytes Sodium Controlled Diet #DVT ppx: Lovenox 40 daily #Dispo: Tele Visit type - Emergency Visit Emergency Visit: Yes ED Registration Date: 07/06/20 Care time: The patient presented to the Emergency Department on the above date and was hospitalized for further evaluation of their emergent condition. - New Patient This patient is new to me today: No - Critical Care Critical Care patient: No - Discharge Referral Referred to [facility] Med P.C.: No - Medication Review Med list reviewed for High Risk Meds patients 65 and older: Yes ATTENDING PHYSICIAN STATEMENT I saw and evaluated the patient. I reviewed the resident's note and discussed the case with the resident. I agree with the resident's findings and plan as documented. SUBJECTIVE: OBJECTIVE: ASSESSMENT AND PLAN:
[2020-07-08] MEDS: ATORVASTATIN CA 80 MG TABLET (FP) PO SCH (22:40)
[2020-07-09 07:08] LABS: HEMATOCRIT 31.8 % (35.4-49); HEMOGLOBIN 10.6 GM/dL (11.7-16.9); MCH 34.3 pg (25.7-33.7); MCHC 33.5 g/dl (32.0-35.9); MEAN CELL VOLUME 102.4 fl (80-96); MEAN PLT VOLUME 9.2 fl (7.5-11.1); PLATELET COUNT 155 K/MM3 (134-434); RDW 12.7 % (11.9-15.9); WHITE BLOOD COUNT 4.2 K/mm3 (4.0-10.0)
[2020-07-09 07:33] LABS: PHOSPHOROUS 3.3 mg/dL (2.5-4.9)
--- NOTE | 2020-07-09 09:02 | PN ---
Progress Note, Physician Chief Complaint: Pt A&OX3; OOB in chair; asymptomatic. History of Present Illness: Mr. Wolfe is an 84 year old black male with past medical history of bradyarrhythmia s/p implantable loop recorder placement (2015), heroin and cocaine abuse (last smoked cocaine and "shot heroin IV 2 weeks ago), HTN, ?CAD/[place], sent from [facility] after he reported multiple episodes of left sided chest pain (stabbing, lasting off and on for several minutes, occurring at rest; no previous hx of chest pain; pt lives in [place], and often walks 30-40 blocks, with no hx chest discomfort or dyspnea). Noted to have mildly elevated TNI now.. - Current Medication List Current Medications: Active Medications Aspirin (Ecotrin -) 81 mg PO DAILY COUNTS INCLUDE 234 BEDS AT THE [facility] Last Admin: 07/08/20 08:59 Dose: 81 mg Documented by: Atorvastatin Calcium (Lipitor -) 80 mg PO HS COUNTS INCLUDE 234 BEDS AT THE [facility] Last Admin: 07/08/20 22:40 Dose: 80 mg Documented by: Clopidogrel Bisulfate (Plavix -) 75 mg PO DAILY COUNTS INCLUDE 234 BEDS AT THE [facility] Last Admin: 07/08/20 08:59 Dose: 75 mg Documented by: Nicotine (Nicoderm Patch -) 14 mg TD DAILY COUNTS INCLUDE 234 BEDS AT THE [facility] Last Admin: 07/08/20 09:00 Dose: 14 mg Documented by: Sacubitril/Valsartan (Entresto 24 Mg-26 Mg Tablet) 1 tab PO BID COUNTS INCLUDE 234 BEDS AT THE [facility] Last Admin: 07/08/20 22:40 Dose: 1 tab Documented by: - Objective Vital Signs: Vital Signs Temperature 98.3 F 07/09/20 05:10 Pulse Rate 66 07/09/20 05:10 Respiratory Rate 16 07/09/20 05:10 Blood Pressure 117/73 07/09/20 05:10 O2 Sat by Pulse Oximetry (%) 98 07/09/20 05:10 Constitutional: Yes: Calm Eyes: Yes: WNL HENT: Yes: WNL Cardiovascular: Yes: S1, S2 Respiratory: Yes: WNL Gastrointestinal: Yes: WNL ...Rectal Exam: Yes: Deferred Genitourinary: No: Anuria Musculoskeletal: Yes: WNL, Other (small protrusion (nontender) left sternal area: loop recorder implanted 2015) Extremities: Yes: WNL Edema: No Peripheral Pulses WNL: Yes Integumentary: Yes: WNL Neurological: Yes: WNL Labs: CBC, BMP 07/09/20 06:06 INR, PTT INR 1.13 (0.83-1.09) H 07/06/20 12:57 - ....Imaging Chest X-ray: Image Reviewed EKG: Image Reviewed Assessment/Plan Patient is an 84 year old black male with past medical history of bradyarrhythmia s/p implantable loop recorder placement (2015), heroin and cocaine abuse (last used both 2 weeks ago), HTN, ?CAD/[place], sent from [facility] after he reported multiple episodes of left sided chest pain. Found to have low levels TNIs (0.07) Chest pain- free now; ASA Plavix cont BB serial ekgs and tnis ECHO: normal LVEF; abnormal diastolic compliance. Pl: Stress MIBI. 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
[2020-07-09 09:09] LABS: BLOOD UREA NITROGEN 18.4 mg/dL (7-18); CALCIUM 9.2 mg/dL (8.5-10.1); CREATININE 0.8 mg/dL (0.55-1.3); POTASSIUM 3.9 mmol/L (3.5-5.1)
[2020-07-09] MEDS ORDERED: PT OWN MED DRAWER 7, Y5N ONE (09:35)
--- NOTE | 2020-07-09 12:15 | PN ---
Teaching Attending Note Name of Resident: Nato Goodrich ATTENDING PHYSICIAN STATEMENT I saw and evaluated the patient. I reviewed the resident's note and discussed the case with the resident. I agree with the resident's findings and plan as documented. SUBJECTIVE: Seen and examined at bedside. Pt to undergo nuclear stress test today. 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
[2020-07-09] MEDS: CLOPIDOGREL BISULFATE 75 MG TABLET (FP) PO SCH (12:49)
[2020-07-09] MEDS: NICOTINE 14 MG/24 HOURS TOPICAL PATCH TD SCH (12:49)
[2020-07-09] MEDS: ASPIRIN COATED 81 MG TABLET.EC PO SCH (12:50)
[2020-07-09] MEDS: SACUBITRIL/VALSARTAN 24 MG-26 MG TABLET PO SCH ×2 (12:50→20:59)
--- NOTE | 2020-07-09 15:05 | PN ---
Physical Exam: SUBJECTIVE: Patient seen and examined at bedside. Underwent for stress test today. Results discussed with Dr Wang. OBJECTIVE: Vital Signs Period Temp Pulse Resp BP Sys/Zambrano Pulse Ox Last 24 Hr 97.4 F-98.8 F 52-89 16-20 117-149/61-87 98-100 GENERAL: No acute distress HEAD: Normal with no signs of trauma. EYES: EOMI Sclera Clear CHESt: Loop Recorder palpable left chest wall. LUNGS: CTAB No wheezing rales or rhonchi HEART: RRR No MRG S1S2 ABDOMEN: Soft, NDNT EXTREMITIES: 2+ pulses, warm, well-perfused, no edema. NEUROLOGICAL: Cranial nerves II through XII grossly intact. Normal speech. Laboratory Results - last 24 hr 07/09/20 07/09/20 06:06 06:06 WBC 4.2 RBC 3.10 L Hgb 10.6 L Hct 31.8 L MCV 102.4 H MCH 34.3 H MCHC 33.5 RDW 12.7 Plt Count 155 MPV 9.2 Sodium 138 Potassium 3.9 Chloride 105 Carbon Dioxide 27 Anion Gap 6 L BUN 18.4 H Creatinine 0.8 Est GFR (CKD-EPI)AfAm 96.42 Est GFR (CKD-EPI)NonAf 83.19 Random Glucose 82 Calcium 9.2 Phosphorus 3.3 Magnesium 2.0 Active Medications Generic Name Dose Route Start Last Admin Trade Name Freq PRN Reason Stop Dose Admin Aspirin 81 mg 07/07/20 10:00 07/09/20 12:50 Ecotrin - PO 81 mg DAILY MEAGAN Administration Atorvastatin Calcium 80 mg 07/06/20 22:00 07/08/20 22:40 Lipitor - PO 80 mg HS MEAGAN Administration Clopidogrel Bisulfate 75 mg 07/07/20 10:00 07/09/20 12:49 Plavix - PO 75 mg DAILY MEAGAN Administration Nicotine 14 mg 07/07/20 10:00 07/09/20 12:49 Nicoderm Patch - TD 14 mg DAILY MEAGAN Administration Sacubitril/Valsartan 1 tab 07/06/20 22:00 07/09/20 12:50 Entresto 24 Mg-26 Mg Tablet PO 1 tab BID MEAGAN Administration ASSESSMENT/PLAN: 84-year-old male with a 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 for repeated episodes of left-sided chest pain, found to have NSTEMI #Chest pain with NSTEMI -Initial EKG----> sinus, rate 48, TWI II III aVF (similar to prior) and TWI v4- v6 new compared to prior Patient loaded with Plavix, ASA 81 daily, and high intensity statin Echocardiogram: Grade 1 diastolic dysfunction. EF 55-60%. We will obtain records from [place] and [facility] Telemetry Patient would benefit from beta-elisabeth, however he has sinus bradycardia. Discussed with Cardiology. Will start patient on Torpol XL and monitor HR overnight. -Cardio on board recs appreciated -Consider EP consult as patient with loop recorder that has not been interrogated since placement per patient. -S/p Stress test: Results reviewed. LVEF 45%, no ischemia, Brief NSVT #Opiate and cocaine detox: -Completed Detox at [facility]. #FEN No Fluids Monitor Electrolytes Sodium Controlled Diet #DVT ppx: Lovenox 40 daily #Dispo: Tele Visit type - Emergency Visit Emergency Visit: Yes ED Registration Date: 07/06/20 Care time: The patient presented to the Emergency Department on the above date and was hospitalized for further evaluation of their emergent condition. - New Patient This patient is new to me today: No - Critical Care Critical Care patient: No - Discharge Referral Referred to [facility] Med [facility].C[facility] No - Medication Review Med list reviewed for High Risk Meds patients 65 and older: Yes ATTENDING PHYSICIAN STATEMENT I saw and evaluated the patient. I reviewed the resident's note and discussed the case with the resident. I agree with the resident's findings and plan as documented. SUBJECTIVE: OBJECTIVE: ASSESSMENT AND PLAN:
[2020-07-09] MEDS: ATORVASTATIN CA 80 MG TABLET (FP) PO SCH (20:59)
[2020-07-10 07:29] LABS: HEMOGLOBIN 10.8 GM/dL (11.7-16.9); MCH 34.7 pg (25.7-33.7); MCHC 33.9 g/dl (32.0-35.9); MEAN CELL VOLUME 102.5 fl (80-96); MEAN PLT VOLUME 8.8 fl (7.5-11.1); PLATELET COUNT 151 K/MM3 (134-434); RBC 3.12 M/mm3 (4.00-5.60); RDW 12.9 % (11.9-15.9); WHITE BLOOD COUNT 4.1 K/mm3 (4.0-10.0)
[2020-07-10 08:02] LABS: BLOOD UREA NITROGEN 22.3 mg/dL (7-18); CALCIUM 9.1 mg/dL (8.5-10.1); CREATININE 0.9 mg/dL (0.55-1.3); PHOSPHOROUS 3.7 mg/dL (2.5-4.9); POTASSIUM 4.3 mmol/L (3.5-5.1)
[2020-07-10] MEDS ORDERED: PT OWN MED DRAWER 7, Y5N ONE ×2 (08:28→10:44)
--- NOTE | 2020-07-10 10:21 | PN ---
Progress Note, Physician History of Present Illness: Patient is an 84 year old male with past medical history of bradyarrhythmia s/p implantable loop recorder placement (2016), heroin and cocaine abuse, HTN, ?CAD/[place], sent from [facility] after he reported multiple episodes of left sided chest pain. - Current Medication List Current Medications: Active Medications Aspirin (Ecotrin -) 81 mg PO DAILY [facility] Last Admin: 07/09/20 12:50 Dose: 81 mg Documented by: Atorvastatin Calcium (Lipitor -) 80 mg PO HS [facility] Last Admin: 07/09/20 20:59 Dose: 80 mg Documented by: Clopidogrel Bisulfate (Plavix -) 75 mg PO DAILY [facility] Last Admin: 07/09/20 12:49 Dose: 75 mg Documented by: Metoprolol Succinate (Toprol Xl -) 50 mg PO DAILY [facility] Last Admin: 07/09/20 15:49 Dose: 50 mg Documented by: Nicotine (Nicoderm Patch -) 14 mg TD DAILY [facility] Last Admin: 07/09/20 12:49 Dose: 14 mg Documented by: Sacubitril/Valsartan (Entresto 24 Mg-26 Mg Tablet) 1 tab PO BID [facility] Last Admin: 07/09/20 20:59 Dose: 1 tab Documented by: - Objective Vital Signs: Vital Signs Temperature 97.8 F 07/10/20 06:00 Pulse Rate 47 L 07/10/20 06:00 Respiratory Rate 20 07/10/20 06:00 Blood Pressure 126/74 07/10/20 06:00 O2 Sat by Pulse Oximetry (%) 100 07/10/20 06:00 Eyes: Yes: WNL, Conjunctiva Clear, EOM Intact HENT: Yes: WNL, Atraumatic, Normocephalic Neck: Yes: WNL, Supple, Trachea Midline Cardiovascular: Yes: WNL, Regular Rate and Rhythm Respiratory: Yes: WNL, Regular, CTA Bilaterally Gastrointestinal: Yes: WNL, Normal Bowel Sounds Genitourinary: Yes: WNL Musculoskeletal: Yes: WNL Extremities: Yes: WNL Edema: No Integumentary: Yes: WNL Neurological: Yes: WNL, Alert, Oriented ...Motor Strength: WNL Psychiatric: Yes: WNL Labs: CBC, BMP 07/10/20 06:41 07/10/20 06:41 INR, PTT INR 1.13 (0.83-1.09) H 07/06/20 12:57 Assessment/Plan Patient is an 84 year old black male with past medical history of bradyarrhythmia s/p implantable loop recorder placement (2015), heroin and cocaine abuse (last used both 2 weeks ago), HTN, ?CAD/[place], sent from [facility] after he reported multiple episodes of left sided chest pain. Found to have low levels TNIs (0.07) Chest pain- free now; ASA Plavix cont BB serial ekgs and tnis ECHO: normal LVEF; abnormal diastolic compliance. 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
[2020-07-10] MEDS: CLOPIDOGREL BISULFATE 75 MG TABLET (FP) PO SCH (10:42)
[2020-07-10] MEDS: ASPIRIN COATED 81 MG TABLET.EC PO SCH (10:42)
[2020-07-10] MEDS: SACUBITRIL/VALSARTAN 24 MG-26 MG TABLET PO SCH (10:42)
[2020-07-10] MEDS: NICOTINE 14 MG/24 HOURS TOPICAL PATCH TD SCH (10:45)
--- NOTE | 2020-07-10 12:20 | PN ---
Teaching Attending Note Name of Resident: Nato Goodrich ATTENDING PHYSICIAN STATEMENT I saw and evaluated the patient. I reviewed the resident's note and discussed the case with the resident. I agree with the resident's findings and plan as documented. SUBJECTIVE: Seen and examined at bedside. Stress test nondiagnostic. Patient found to have ejection fraction of 45%. Patient will be discharged on metoprolol, DAPT, and sacubitril/valsartan. Patient is stated he will not use cocaine anymore and was informed of the risks of cocaine use given his heart disease and beta-elisabeth use. 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 Stress test nondiagnostic. Patient found to have ejection fraction of 45%. Patient will be discharged on metoprolol, DAPT, and sacubitril/valsartan. Patient is stated he will not use cocaine anymore and was informed of the risks of cocaine use given his heart disease and beta- elisabeth use. He will follow-up with cardiology and EP as an outpatient for removal of his loop recorder
--- NOTE | 2020-07-10 12:21 | DS ---
Physical Exam: SUBJECTIVE: Patient seen and examined OBJECTIVE: Vital Signs Period Temp Pulse Resp BP Sys/Zambrano Pulse Ox Last 24 Hr 97.4 F-98.5 F 47-89 16-20 122-148/56-88 98-100 PHYSICAL EXAM GENERAL: The patient is awake, alert, and fully oriented, in no acute distress. HEAD: Normal with no signs of trauma. EYES: PERRL, extraocular movements intact, sclera anicteric, conjunctiva clear. ENT: Ears normal, nares patent, oropharynx clear without exudates, moist mucous membranes. NECK: Trachea midline, full range of motion, supple. LUNGS: Breath sounds equal, clear to auscultation bilaterally, no wheezes, no crackles, no accessory muscle use. HEART: Regular rate and rhythm, S1, S2 without murmur, rub or gallop. ABDOMEN: Soft, nontender, nondistended, normoactive bowel sounds, no guarding, no rebound, no hepatosplenomegaly, no masses. EXTREMITIES: 2+ pulses, warm, well-perfused, no edema. NEUROLOGICAL: Cranial nerves II through XII grossly intact. Normal speech, gait not observed. PSYCH: Normal mood, normal affect. SKIN: Warm, dry, normal turgor, no rashes or lesions noted. LABS Laboratory Results - last 24 hr 07/09/20 07/10/20 07/10/20 21:00 06:41 06:41 WBC 4.1 RBC 3.12 L Hgb 10.8 L Hct 32.0 L MCV 102.5 H MCH 34.7 H MCHC 33.9 RDW 12.9 Plt Count 151 MPV 8.8 Sodium 137 Potassium 4.3 Chloride 104 Carbon Dioxide 28 Anion Gap 4 L BUN 22.3 H Creatinine 0.9 Est GFR (CKD-EPI)AfAm 91.86 Est GFR (CKD-EPI)NonAf 79.26 Random Glucose 81 Calcium 9.1 Phosphorus 3.7 Magnesium 2.0 Stool Occult Blood Negative HOSPITAL COURSE: Date of Admission:07/06/20 Date of Discharge: 07/10/20 Discharge Summary Problems reviewed: Yes Reason For Visit: STATUS POS PLACEMENT OF IMPLANTABLE LOOP Current Active Problems Chest pain (Acute) Status post placement of implantable loop recorder (Acute) Condition: Improved - Instructions Diet, Activity, Other Instructions: You presented to the hospital due top chest pain. You were found to have a heart attack. You will be sent home on a new medication: Metoprolol 50 mg Daily. Please STOP using cocain as it may cause further heart attacks and strokes. Cocaine use while using this new medication (Metoprolol) may lead to . You have stated that you will NOT use cocaine anymore. Please continue to take your home medications as prescribed. You also have been prescribed Aspirin and Plavix. Take these medications once per day. You should follow up with your primary care doctor in 1 week. You have indicated that you would like to follow up with our hospital clinic. An appointment has been made for you You have a cardiac device (Loop Recorder) inside your chest. You should have this device removed. We have given you a referral to Dr Lucero (Genetic Technologist). You should follow up with the Woodworking Machine Operator- Dr Wang in 1 week. an appointment has been made for you. Please return to the emergency department immediately if you begin to experience chest pain, shortness of breath, dizziness, nausea/vomiting, or any other abnormal symptoms. Referrals: [facility] [place] [Provider Group] - 1 Week Suresh Lucero MD [Staff Physician] - 2 Weeks Bean Wang MD [Staff Physician] - 1 Week Disposition: HOME - Home Medications Comprehensive Discharge Medication List: Ambulatory Orders Atorvastatin Calcium 80 mg PO HS 07/02/20 Aspirin Coated [Ecotrin -] 81 mg PO DAILY tablet.ec 07/10/20 Aspirin [Ecotrin] 81 mg PO DAILY #30 tablet. 07/10/20 Clopidogrel Bisulfate [Plavix -] 75 mg PO DAILY #30 tablet 07/10/20 Metoprolol Succinate [Toprol XL -] 50 mg PO DAILY #30 tab.sr.24h 07/10/20 Sacubitril/Valsartan [Entresto 24 mg-26 mg Tablet] 1 each PO BID #30 tablet 07/10/20 Torsemide 20 mg PO BID 07/10/20 - Discharge Referral Referred to [facility] No ATTENDING PHYSICIAN STATEMENT I saw and evaluated the patient. I reviewed the resident's note and discussed the case with the resident. I agree with the resident's findings and plan as documented. SUBJECTIVE: OBJECTIVE: ASSESSMENT AND PLAN:
--- NOTE | 2020-07-10 12:35 | DS ---
Physical Exam: SUBJECTIVE: Patient seen and examined OBJECTIVE: Vital Signs Period Temp Pulse Resp BP Sys/Zambrano Pulse Ox Last 24 Hr 97.4 F-98.5 F 47-89 16-20 122-148/56-88 98-100 PHYSICAL EXAM GENERAL: The patient is awake, alert, and fully oriented, in no acute distress. HEAD: Normal with no signs of trauma. EYES: PERRL, extraocular movements intact, sclera anicteric, conjunctiva clear. ENT: Ears normal, nares patent, oropharynx clear without exudates, moist mucous membranes. NECK: Trachea midline, full range of motion, supple. LUNGS: Breath sounds equal, clear to auscultation bilaterally, no wheezes, no crackles, no accessory muscle use. HEART: Regular rate and rhythm, S1, S2 without murmur, rub or gallop. ABDOMEN: Soft, nontender, nondistended, normoactive bowel sounds, no guarding, no rebound, no hepatosplenomegaly, no masses. EXTREMITIES: 2+ pulses, warm, well-perfused, no edema. NEUROLOGICAL: Cranial nerves II through XII grossly intact. Normal speech, gait not observed. PSYCH: Normal mood, normal affect. SKIN: Warm, dry, normal turgor, no rashes or lesions noted. LABS Laboratory Results - last 24 hr 07/09/20 07/10/20 07/10/20 21:00 06:41 06:41 WBC 4.1 RBC 3.12 L Hgb 10.8 L Hct 32.0 L MCV 102.5 H MCH 34.7 H MCHC 33.9 RDW 12.9 Plt Count 151 MPV 8.8 Sodium 137 Potassium 4.3 Chloride 104 Carbon Dioxide 28 Anion Gap 4 L BUN 22.3 H Creatinine 0.9 Est GFR (CKD-EPI)AfAm 91.86 Est GFR (CKD-EPI)NonAf 79.26 Random Glucose 81 Calcium 9.1 Phosphorus 3.7 Magnesium 2.0 Stool Occult Blood Negative HOSPITAL COURSE: Date of Admission:07/06/20 Date of Discharge: 07/10/20 Discharge Summary Problems reviewed: Yes Reason For Visit: STATUS POS PLACEMENT OF IMPLANTABLE LOOP Current Active Problems Chest pain (Acute) Status post placement of implantable loop recorder (Acute) Condition: Improved - Instructions Diet, Activity, Other Instructions: You presented to the hospital due top chest pain. You were found to have a heart attack. You will be sent home on a new medication: Metoprolol 50 mg Daily. Please STOP using cocaine as it may cause further heart attacks and strokes. Cocaine use while using this new medication (Metoprolol) may lead to . You have stated that you will NOT use cocaine anymore. Please continue to take your home medications as prescribed. You also have been prescribed Aspirin 81 daily and Plavix 75 mg daily. You should follow up with your primary care doctor in 1 week. You have indicated that you would like to follow up with our hospital clinic. An appointment has been made for you You have a cardiac device (Loop Recorder) inside your chest. You should have this device removed. We have given you a referral to Dr Lucero (Ambulatory Care Nurse). You should follow up with the [facility]- Dr Wang in 1 week. an appointment has been made for you. You were also noted to be malnourished during your stay. It is recommended that you consume ensure enlive THREE times per day with meals to help with your nourishment. Please return to the emergency department immediately if you begin to experience chest pain, shortness of breath, dizziness, nausea/vomiting, or any other abnormal symptoms. Referrals: [facility] [place] [Provider Group] - 1 Week Suresh Lucero MD [Staff Physician] - 2 Weeks Bean Wang MD [Staff Physician] - 1 Week Disposition: HOME - Home Medications Comprehensive Discharge Medication List: Ambulatory Orders Atorvastatin Calcium 80 mg PO HS 07/02/20 Aspirin Coated [Ecotrin -] 81 mg PO DAILY tablet.ec 07/10/20 Aspirin [Ecotrin] 81 mg PO DAILY #30 tablet. 07/10/20 Clopidogrel Bisulfate [Plavix -] 75 mg PO DAILY #30 tablet 07/10/20 Metoprolol Succinate [Toprol XL -] 50 mg PO DAILY #30 tab.sr.24h 07/10/20 Sacubitril/Valsartan [Entresto 24 mg-26 mg Tablet] 1 each PO BID #30 tablet 07/10/20 Torsemide 20 mg PO BID 07/10/20 - Discharge Referral Referred to [facility] No ATTENDING PHYSICIAN STATEMENT I saw and evaluated the patient. I reviewed the resident's note and discussed the case with the resident. I agree with the resident's findings and plan as documented. SUBJECTIVE: OBJECTIVE: ASSESSMENT AND PLAN:
[2020-07-10 14:05] VITALS: BP 140/71; PULSE 55; TEMP 98.1
== END 2020-07-10 14:56 | disposition home or self-care (01) ==
LOC: JER 11:55 → UNDOADMOB 13:12 → INTOOBSV 13:12 → JERBED 13:12 → J4S 19:36 → JERBED 19:36 → J4S 19:36
PROVIDERS: ADMIT Student in an Organized Health Care Education/Training Program; ATTEND Internal Medicine
PROC: 3E023GC Introduction of Other Therapeutic Substance into Muscle, Percutaneous Approach (ICD-10-PCS; principal; 2020-07-06)
PROC: 3E033GC Introduction of Other Therapeutic Substance into Peripheral Vein, Percutaneous Approach (ICD-10-PCS; 2020-07-06)
PROC: 3E0337Z Introduction of Electrolytic and Water Balance Substance into Peripheral Vein, Percutaneous Approach (ICD-10-PCS; 2020-07-06)
DX: I21.3 ST elevation (STEMI) myocardial infarction of unspecified site (principal); I11.0 Hypertensive heart disease with heart failure; F14.90 Cocaine use, unspecified, uncomplicated; I49.8 Other specified cardiac arrhythmias; F15.90 Other stimulant use, unspecified, uncomplicated; Z95.818 Presence of other cardiac implants and grafts; I25.10 Atherosclerotic heart disease of native coronary artery without angina pectoris; Z29.9 Encounter for prophylactic measures, unspecified; E46 Unspecified protein-calorie malnutrition; F17.210 Nicotine dependence, cigarettes, uncomplicated; D53.9 Nutritional anemia, unspecified
CPT/HCPCS: 36415; 71045-TC-FY; 78452-TC; 80048; 80053; 80061; 82272; 82550; 82607; 82728; 82746; 83036; 83540; 83550; 83690; 83721; 83735; 84100; 84443; 84484; 85025; 85027; 85610; 85730; 93005; 93010; 93017; 93306-TC; 99285-25; A9502; G0378; U0003